=== PATIENT | male | born 1950 | race Caucasian/White ===

== ENCOUNTER → 2021-07-01 13:00 | Outpatient (BNVA) | payer MEDICARE, SELFPAY | PROVIDERS: PCP Nurse Practitioner Family; Visit Provider Nurse Practitioner Family | DX: G20 Parkinson's disease (principal); Z79.899 Other long term (current) drug therapy | CPT/HCPCS: 99212 ==

== ENCOUNTER → 2021-10-11 09:33 | Outpatient (BNVA) | payer MEDICARE, SELFPAY | PROVIDERS: PCP Nurse Practitioner Family; Visit Provider Psychiatry & Neurology Neurology | DX: G20 Parkinson's disease (principal); Z79.899 Other long term (current) drug therapy | CPT/HCPCS: 99212 ==

== ENCOUNTER 2022-02-15 08:30 | Inpatient (IN) | payer MEDICARE, SELFPAY ==
--- NOTE | ~2022-02-15 | XR_ITS ---
EXAMINATION: LEFT KNEE, LEFT HAND, LEFT FOREARM AND CHEST. CLINICAL INFORMATION: Fall. Pain COMPARISON: None TECHNIQUE: Left knee 4 views. Left hand 3 views. Left forearm 2 views. Chest one view. FINDINGS: Left knee: There is mild reduction in lateral compartment joint space without bony erosive changes. The patellofemoral joint spaces normal. There is superior patellar spurring and mild suprapatellar joint effusion. Left hand: There are oblique fractures involving mid segment fourth and fifth metacarpals with mild overriding of fracture fragment fifth metacarpal fracture. There is a nondisplaced fracture involving distal ulna. Left forearm: There is a nondisplaced oblique fracture distal ulna. The radius is intact. The radioulnar carpal joint space is normal. CHEST: The lungs are fairly well-expanded and clear of acute pneumonic process. The heart size and pulmonary vascularity is normal. Multiple views of the ribs reveal no visible fracture or bony abnormality. XR/XR hand LT 2V IMPRESSION: 1. Oblique fractures involving mid segment fourth and fifth metacarpals with mild overriding of fourth metacarpal fracture fragments. There is a nondisplaced fracture distal ulna. The radius is intact. 2. Mild degenerative changes lateral compartment left knee with mild suprapatellar joint effusion. 3. Unremarkable chest exam. No visible rib fractures seen.
--- NOTE | ~2022-02-15 | US_ITS ---
EXAMINATION: US RETROPERITONEAL LIMITED (RENAL ONLY) CLINICAL INFORMATION: Acute. Kidney insufficiency. Rule out obstruction. COMPARISON: Previous CT of the abdomen and pelvis from 2014 TECHNIQUE: Grayscale imaging of the kidneys. Exam is very limited. FINDINGS: RIGHT KIDNEY: 10 x 4.3 x 6 cm (SAG x AP x TRV). The kidney is normal in size, contour, and echogenicity. Renal cortical thickness is normal. No hydronephrosis. LEFT KIDNEY: Not visualized US/US renal BI IMPRESSION: Limited exam. The right kidney is unremarkable. The left kidney is not seen.
--- NOTE | ~2022-02-15 | XR_ITS ---
EXAMINATION: LEFT KNEE, LEFT HAND, LEFT FOREARM AND CHEST. CLINICAL INFORMATION: Fall. Pain COMPARISON: None TECHNIQUE: Left knee 4 views. Left hand 3 views. Left forearm 2 views. Chest one view. FINDINGS: Left knee: There is mild reduction in lateral compartment joint space without bony erosive changes. The patellofemoral joint spaces normal. There is superior patellar spurring and mild suprapatellar joint effusion. Left hand: There are oblique fractures involving mid segment fourth and fifth metacarpals with mild overriding of fracture fragment fifth metacarpal fracture. There is a nondisplaced fracture involving distal ulna. Left forearm: There is a nondisplaced oblique fracture distal ulna. The radius is intact. The radioulnar carpal joint space is normal. CHEST: The lungs are fairly well-expanded and clear of acute pneumonic process. The heart size and pulmonary vascularity is normal. Multiple views of the ribs reveal no visible fracture or bony abnormality. XR/XR knee LT 4V IMPRESSION: 1. Oblique fractures involving mid segment fourth and fifth metacarpals with mild overriding of fourth metacarpal fracture fragments. There is a nondisplaced fracture distal ulna. The radius is intact. 2. Mild degenerative changes lateral compartment left knee with mild suprapatellar joint effusion. 3. Unremarkable chest exam. No visible rib fractures seen.
--- NOTE | ~2022-02-15 | CT_ITS ---
EXAMINATION: CT BRAIN AND CT CERVICAL SPINE WITHOUT IV CONTRAST. CLINICAL INFORMATION: Fall, AMS. COMPARISON: None TECHNIQUE: 5 mm thin axial and reformatted 2 mm thin sagittal and coronal images of brain were obtained. Subsequently axial 3 mm thin and reformatted 2 mm thin sagittal and coronal images of cervical spine were obtained. DLP 1072. FINDINGS: Brain: There is no acute intra-axial, extra-axial bleed, masses or midline shift. There is no acute infarction evolution. The britt to white matter difference is maintained normal. Both lateral ventricles are symmetrical in size and configuration without enlargement. Bone windows reveal no calvarial abnormality. Bilateral paranasal sinuses and mastoid air cells are well-aerated. There is no scalp soft tissue abnormality. Cervical spine: There is normal cervical lordosis. The vertebral heights and alignment is normal. There is loss of C5-C6 and C6-C7 disc heights with mild ventral and posterior spondylosis. The craniovertebral junction and the C1-C2 alignment is normal. There is no visible acute fracture, dislocation or subluxation seen. There is bilateral C3-C4, C4-C5 and C5-C6 moderate to significant facet joint arthropathy greater on the right side with bilateral narrowing of neural foramina at these disc levels. No visible acute fracture, dislocation or subluxation seen. The lung apices are clear. The prevertebral soft tissues are normal. The airways widely patent. CT/CT cervical spine wo IV con IMPRESSION: 1. No acute intracranial process seen. 2. There is no acute fracture, dislocation or subluxation in cervical spine. There are degenerative disc changes C5-C6 and C6-C7 disc levels with ventral and posterior spondylosis.
--- NOTE | ~2022-02-15 | CT_ITS ---
EXAMINATION: CT BRAIN AND CT CERVICAL SPINE WITHOUT IV CONTRAST. CLINICAL INFORMATION: Fall, AMS. COMPARISON: None TECHNIQUE: 5 mm thin axial and reformatted 2 mm thin sagittal and coronal images of brain were obtained. Subsequently axial 3 mm thin and reformatted 2 mm thin sagittal and coronal images of cervical spine were obtained. DLP 1072. FINDINGS: Brain: There is no acute intra-axial, extra-axial bleed, masses or midline shift. There is no acute infarction evolution. The britt to white matter difference is maintained normal. Both lateral ventricles are symmetrical in size and configuration without enlargement. Bone windows reveal no calvarial abnormality. Bilateral paranasal sinuses and mastoid air cells are well-aerated. There is no scalp soft tissue abnormality. Cervical spine: There is normal cervical lordosis. The vertebral heights and alignment is normal. There is loss of C5-C6 and C6-C7 disc heights with mild ventral and posterior spondylosis. The craniovertebral junction and the C1-C2 alignment is normal. There is no visible acute fracture, dislocation or subluxation seen. There is bilateral C3-C4, C4-C5 and C5-C6 moderate to significant facet joint arthropathy greater on the right side with bilateral narrowing of neural foramina at these disc levels. No visible acute fracture, dislocation or subluxation seen. The lung apices are clear. The prevertebral soft tissues are normal. The airways widely patent. CT/CT head/brain wo IV con IMPRESSION: 1. No acute intracranial process seen. 2. There is no acute fracture, dislocation or subluxation in cervical spine. There are degenerative disc changes C5-C6 and C6-C7 disc levels with ventral and posterior spondylosis.
--- NOTE | ~2022-02-15 | XR_ITS ---
EXAMINATION: XR LUMBOSACRAL SPINE CLINICAL INFORMATION: Fall. COMPARISON: None TECHNIQUE: Three views of the lumbosacral spine. FINDINGS: There is maintained lumbar lordosis. The vertebral heights and alignment is normal. There is loss of disc height virtually at every disc level with ventral spondylosis at L4-L5 and L5-S1 disc levels. There are bilateral L2, L3, L4 pedicular screws and interconnecting rods with L3-L4 disc prosthesis. No lytic or sclerotic process seen. Large amount of gas is seen in the small bowel loops. XR/XR lumbar spine 2-3V IMPRESSION: Degenerative disc changes virtually at every disc levels with moderate ventral spondylosis L4-L5 and L5-S1 disc levels. There is posterior hardware fusion from L2 through L4 vertebra and a disc prosthesis at the L3-L4 disc level.
--- NOTE | ~2022-02-15 | XR_ITS ---
EXAMINATION: LEFT KNEE, LEFT HAND, LEFT FOREARM AND CHEST. CLINICAL INFORMATION: Fall. Pain COMPARISON: None TECHNIQUE: Left knee 4 views. Left hand 3 views. Left forearm 2 views. Chest one view. FINDINGS: Left knee: There is mild reduction in lateral compartment joint space without bony erosive changes. The patellofemoral joint spaces normal. There is superior patellar spurring and mild suprapatellar joint effusion. Left hand: There are oblique fractures involving mid segment fourth and fifth metacarpals with mild overriding of fracture fragment fifth metacarpal fracture. There is a nondisplaced fracture involving distal ulna. Left forearm: There is a nondisplaced oblique fracture distal ulna. The radius is intact. The radioulnar carpal joint space is normal. CHEST: The lungs are fairly well-expanded and clear of acute pneumonic process. The heart size and pulmonary vascularity is normal. Multiple views of the ribs reveal no visible fracture or bony abnormality. XR/XR chest 1V IMPRESSION: 1. Oblique fractures involving mid segment fourth and fifth metacarpals with mild overriding of fourth metacarpal fracture fragments. There is a nondisplaced fracture distal ulna. The radius is intact. 2. Mild degenerative changes lateral compartment left knee with mild suprapatellar joint effusion. 3. Unremarkable chest exam. No visible rib fractures seen.
--- NOTE | ~2022-02-15 | XR_ITS ---
EXAMINATION: LEFT KNEE, LEFT HAND, LEFT FOREARM AND CHEST. CLINICAL INFORMATION: Fall. Pain COMPARISON: None TECHNIQUE: Left knee 4 views. Left hand 3 views. Left forearm 2 views. Chest one view. FINDINGS: Left knee: There is mild reduction in lateral compartment joint space without bony erosive changes. The patellofemoral joint spaces normal. There is superior patellar spurring and mild suprapatellar joint effusion. Left hand: There are oblique fractures involving mid segment fourth and fifth metacarpals with mild overriding of fracture fragment fifth metacarpal fracture. There is a nondisplaced fracture involving distal ulna. Left forearm: There is a nondisplaced oblique fracture distal ulna. The radius is intact. The radioulnar carpal joint space is normal. CHEST: The lungs are fairly well-expanded and clear of acute pneumonic process. The heart size and pulmonary vascularity is normal. Multiple views of the ribs reveal no visible fracture or bony abnormality. XR/XR forearm LT 2V IMPRESSION: 1. Oblique fractures involving mid segment fourth and fifth metacarpals with mild overriding of fourth metacarpal fracture fragments. There is a nondisplaced fracture distal ulna. The radius is intact. 2. Mild degenerative changes lateral compartment left knee with mild suprapatellar joint effusion. 3. Unremarkable chest exam. No visible rib fractures seen.
--- NOTE | ~2022-02-15 | XR_ITS ---
EXAMINATION: XR HAND, RIGHT CLINICAL INFORMATION: Pain COMPARISON: None TECHNIQUE: PA and lateral views of the right hand. FINDINGS: Lateral view is limited due to patient rotation/positioning. Question ossification in between the lunate bone distal radius and distal ulna versus mock effect/bony overlap measuring 3 mm seen on the PA view. Joint spaces are otherwise normal. Soft tissues are normal. XR/XR hand RT 2V IMPRESSION: Lateral view limited due to patient positioning/rotation. Question ossification in between the lunate, distal radius and distal ulna. Additional imaging recommended.
[2022-02-15 08:36] VITALS: BP 154/67; BP 173/97; PULSE 73; PULSE 84; RESP 18; TEMP 36.8; O2SAT 100; BMI 25.0
--- NOTE | 2022-02-15 08:55 | PC.NURSE ---
PT was found in backyard by [employer], unwitnessed fall. PT reports falling 3 steps down from porch. Approximately for 30 mins prior. A&O to self and place. PT reports pain to lower back, left knee, and left arm pain. PT has yellow color bruise to left anterior upper arm, tender to touch left red knee, and red area to right hip. Fingers are discolored. PT doc by EMS.
[2022-02-15 08:57] VITALS: BP 154/67; PULSE 70; RESP 15; TEMP 36.8; O2SAT 94
[2022-02-15 09:01] LABS: Glucose, Whole Blood 97 mg/dL (60-115)
--- NOTE | 2022-02-15 09:07 | ED_ITS ---
HPI - General Adult General Chief complaint: Fall Stated complaint: AMS,FOUND OUTSIDE BY [employer],W/C BOUND Time Seen by Provider: 02/15/22 09:05 Source: patient and EMS Mode of arrival: EMS Limitations: altered mental status History of Present Illness HPI narrative: Patient is a 71 year old assigned male at with a history of parkinson's presenting to the emergency department today after a fall. Patient states that he fell yesterday, down 3 steps, and now his left arm hurts. EMS states that they found the patient down in his backyard and the patient kept referring to his being murdered but his has been for years. Patient denies any dizziness, lightheadedness, abdominal pain, nausea, vomiting, fever, chills, blurry vision, double vision, loss of vision, chest pain, difficulty breathing, shortness of breath, back pain, night sweats, pain with urination, increased urinary frequency, increased urinary urgency, blood in his urine or stool, syncope or a near syncopal episode, bowel incontinence, bladder incontinence, bowel retention, bladder retention, or any other complaints at this time. Onset (ago): unknown Location: left and upper extremity Radiation: non-radiation Severity: mild Severity scale (1-10): 4 Quality: aching and dull Pain Consistency: constant Relieving factors: none Exacerbating factors: movement Associated symptoms: denies other symptoms Treatments prior to arrival: none Related Data Home Medications Medication Instructions Recorded Confirmed alendronate 70 mg/75 mL oral 70 mg PO QWEEK 07/01/21 02/15/22 solution amantadine HCl 100 mg capsule 1 cap PO BID 02/15/22 02/15/22 carbidopa 25 mg-levodopa 100 mg 1 tab PO 5XD 02/15/22 02/15/22 tablet carbidopa ER 25 mg-levodopa 100 mg 1 tab PO QAM 02/15/22 02/15/22 tablet,extended release cyclobenzaprine 5 mg tablet 1 tab PO BEDTIME PRN Spasms 02/15/22 02/15/22 entacapone 200 mg tablet 1 tab PO 5XD 02/15/22 02/15/22 oxycodone 10 mg tablet 2 tab PO Q8H PRN pain 02/15/22 02/15/22 simvastatin 20 mg tablet 1 tab PO BEDTIME 02/15/22 02/15/22 sulfamethoxazole 800 1 tab PO BID 02/15/22 02/15/22 mg-trimethoprim 160 mg tablet Allergies Allergy/AdvReac Type Severity Reaction Status Date / Time No Known Allergies Allergy Unverified 07/01/21 13:06 Review of Systems Constitutional: Constitutional: Reports no additional constitutional complaints, Denies chills, Denies fever(s) and Denies night sweats Eyes: Eyes: Reports no additional eye complaints, Denies blurry vision, Denies change in vision, Denies diplopia, Denies eye discharge, Denies loss of vision and Denies eye pain ENT: Denies dizziness Cardiovascular: Cardiovascular: Reports no additional cardiovascular complaints, Denies chest pain, Denies lightheadedness, Denies Loss of Consciousness and Denies dyspnea Respiratory: Respiratory: Reports no additional respiratory complaints and Denies dyspnea Gastrointestinal: Gastrointestinal: Reports no additional gastrointestinal complaints, Denies abdominal pain, Denies melena, Denies hematochezia, Denies change in bowel habits and Denies change in stool character Genitourinary: Genitourinary: Reports no additional male genitourinary complaints, Denies hematuria, Denies oliguria, Denies difficulty urinating, Denies dysuria, Denies urinary frequency, Denies urinary hesitancy, Denies urin sherrell incontinence and Denies urinary urgency Musculoskeletal: Musculoskeletal: Reports no additional musculoskeletal complaints, Denies numbness and Denies tingling Comments: left arm pain Neurologic: Reports confusion (intermittently), Denies dizziness, Denies loss of vision, Denies numbness and Denies tingling Psychiatric: Psychiatric: Reports no additional psychiatric complaints and Reports confusion (intermittently) Endocrine: Endocrine: Reports no additional endocrine complaints Hematologic/Lymphatic: Hematologic/Lymphatic: Reports no additional hematologic/lymphatic complaints Allergic/Immunologic: Allergic/Immunologic: Reports no additional allergic/immunologic complaints [facility] Past Medical History Attestation statement: The following information was validated with the patient. Source: old records reviewed Medical History (Updated 02/15/22 @ 16:44 by NATASHA Palencia) Adrenal adenoma Atherosclerosis Osteoporosis Parkinson disease Spinal stenosis Surgical History (Updated 02/15/22 @ 15:38 by Sarah Clark MD) History of back surgery History of lumbar fusion Family History Family History (Updated 02/15/22 @ 15:38 by Sarah Clark MD) Father CVA (cerebral vascular accident) Social History Social History Household Members: None Alcohol intake: never Patient Tobacco Use Status: Former Tobacco user Advance Directives: Yes Advance Directives Information Provided: Yes Advance Directives on File: No Physical Exam ED Vital Signs: Vital Signs - 24 hr 02/15/22 08:36 02/15/22 08:57 Temperature 98.2 F 98.2 F Pulse Rate 73 70 Respiratory Rate 18 15 Blood Pressure 154/67 H 154/67 H Pulse Oximetry 100 94 Oxygen Delivery Method Room Air Room Air BMI result Body Mass Index 25.0 Const General: confusion (intermittently) Nutritional Appearance: well nourished Orientation/consciousness: oriented to person, oriented to place and confusion (intermittently) Limitations: no limitations HENMT Head: Yes normal to inspection and Yes atraumatic Ears: hearing grossly normal bilaterally and external ears normal General nose exam: Normal external nose present, no nasal discharge noted and no epistaxis Face and sinus: Yes normal facial exam, No abrasion and No laceration Mouth: Normal oral and palatal mucosa present, no drooling and no muffled voice Eyes General: appearance normal, both eyes and all related structures Periorbital: periorbital findings normal Eyelids: Yes eyelids normal Conjunctivae: conjunctivae normal Pupils: Equal, round and reactive pupils present EOM: EOMs intact bilaterally Neck Neck: Yes normal visual inspection, Yes full ROM and Yes no lymphadenopathy Chest Chest palpation & inspection: normal inspection of the chest Resp Effort & Inspection: normal respiratory effort and able to speak in complete sentences Auscultation: clear to auscultation bilaterally Cardio Rate: regular rate Rhythm: regular rhythm GI Inspection: Yes normal to inspection Skin Other: mild bruising to the right dorsal metacarpals, mild bruising to the left dorsal forearm and left dorsal 4th and 5th metacarpals Neuro General: oriented to person, oriented to place and confusion (intermittently) Cranial nerves: Yes Equal, round and reactive pupils present Motor exam (neuro): 5/5 motor strength present throughout Sensory Exam: Normal double simultaneous stimulation for sensation Coordination: [id number] test normal Extrem General: Yes normal to inspection, Yes full ROM and Yes capillary refill normal Psych Appearance: grossly normal Mental Status: mental status grossly normal Affect: normal affect Attitude: cooperative Thought process: Normal thought process present Thought content: Normal thought content present Insight: Good insight present (Psych) Medications Administered Discontinued Medications Generic Name Dose Route Start Last Admin Trade Name Temitope PRN Reason Stop Dose Admin Sodium Chloride 1,000 mls @ 999 mls/hr 02/15/22 10:30 02/15/22 11:56 Ns IV 02/15/22 11:30 Infused .Q1H1M CHELO Infusion Sodium Polystyrene Sulfonate 30 gm 02/15/22 10:18 02/15/22 11:36 Sodium Polystyrene Sulfon/Sorb 15 Gm/60 Ml Oral.Susp PO 02/15/22 10:19 30 gm ONCE ONE Administration Procedures Orthopedic Splinting/Casting Injury #1: Side: left Upper Extremity Injury Location: forearm Upper Extremity Immobilizer: volar splint Medical Decision Making MDM Narrative Medical decision making narrative: Patient is a 71 year old assigned male at with a history of parkinsons presenting to the emergency department today with left forearm pain and confusion. Patient's physical exam showed a pleasantly confused individual with sporradic moments of flash backs to the traumatic event of his being killed, with mild bruising to the left dorsal forearm, mild bruising to the left dorsal 4th and 5th metacarpals, and mild bruising to the right dorsal metacarpals. Patient's blood work showed an of NA 134, K of 5.4, CO of 18, BUN of 54, CR of 3.11, and total CK of 2240. Patient's urine is pending. Patient's chest, left knee, right hand, and lumbar spine x-rays showed no acute process. Patient's right hand x-ray showed an acute distal ulnar fracture. Patient's left hand x-ray showed oblique fractures involving mid segment fourth and fifth metacarpals with mild overriding of fourth metacarpal fracture fragments. I explained my physical exam findings as well as all test results to the patient. I answered all questions asked by the patient. Patient's left hand was placed in an extended ulnar gutter splint, without incident. I spoke to the hospitalist team who agreed to admission. Patient verbalized agreement and understanding with this treatment plan and admission. Medical Records Medical records reviewed: Yes I reviewed the patient's medical records. Lab Data Lab results reviewed: Yes I reviewed the patient's lab results. Result diagrams: 02/15/22 09:35 02/15/22 09:35 Labs: Lab Results 02/15/22 02/15/22 02/15/22 Range/Units 08:56 09:35 09:35 WBC 7.1 (4.8-10.8) X10*3/uL RBC 3.78 L (4.60-5.80) X10*6/uL Hgb 12.2 L (14.0-18.0) g/dl Hct 36.0 L (42.0-52.0) % MCV 95.2 (80.0-98.0) fL MCH 32.3 (27.0-33.0) pg MCHC 33.9 (31.0-36.0) g/dl RDW 13.1 (11.0-16.0) % Plt Count 153 L (160-400) X10*3/uL MPV 9.1 L (9.4-12.4) fL Immature Gran % (Auto) 0.4 (0.0-0.4) % Neut % (Auto) 80.6 H (45-73) % Lymph % (Auto) 8.2 L (20-40) % [place] % (Auto) 10.5 (2-11) % Eos % (Auto) 0.0 (0-4) % Baso % (Auto) 0.3 (0-2) % Lymph # (Auto) 0.6 L (1.2-4.9) X10*3/uL [place] # (Auto) 0.7 (0.1-1.2) X10*3/uL Eos # (Auto) 0.0 (0.0-0.4) X10*3/uL Baso # (Auto) 0.0 (0.0-0.2) X10*3/uL Abs Immat Gran (auto) 0.03 (0.00-0.03) X10*3/uL Absolute Neuts (auto) 5.7 (2.0-8.3) x10*3/uL Absolute Nucleated RBC 0.000 (0.0-0.012) X10*3/uL Nucleated RBC % (auto) 0.0 (0.0-0.2) /100WBC PT (10.0-13.1) SEC INR (0.9-1.1) APTT (26.0-36.4) SEC Sodium 134 L (135-145) mmol/L Potassium 5.4 H (3.3-5.1) mmol/L Chloride 102 (96-108) mmol/L Carbon Dioxide 18 L (22-29) mmol/L Anion Gap 19 (12-20) BUN 54 H (9-16) mg/dL Creatinine 3.11 H (0.5-1.4) mg/dL Estim Creat Clear Calc 24.6 Estimated GFR 20 POC Glucose 97 (60-115) mg/dL Random Glucose 91 (60-115) mg/dL Calcium 9.5 (8.4-10.2) mg/dL Total Bilirubin 0.7 (0.0-1.0) mg/dL AST 92 H (5-37) U/L ALT 8 (0-40) U/L Alkaline Phosphatase 100 (39-117) U/L Total Creatine Kinase (38-174) U/L Total Protein 7.1 (6.5-8.0) g/dL Albumin 4.4 (3.5-5.0) g/dL Influenza Type A (PCR) (Negative) Influenza Type B (PCR) (Negative) RSV RNA Qual (PCR) (Negative) SARS-CoV-2 RNA (RT-PCR) (Negative) 02/15/22 02/15/22 02/15/22 Range/Units 11:34 11:34 12:40 WBC (4.8-10.8) X10*3/uL RBC (4.60-5.80) X10*6/uL Hgb (14.0-18.0) g/dl Hct (42.0-52.0) % MCV (80.0-98.0) fL MCH (27.0-33.0) pg MCHC (31.0-36.0) g/dl RDW (11.0-16.0) % Plt Count (160-400) X10*3/uL MPV (9.4-12.4) fL Immature Gran % (Auto) (0.0-0.4) % Neut % (Auto) (45-73) % Lymph % (Auto) (20-40) % Oxford % (Auto) (2-11) % Eos % (Auto) (0-4) % Baso % (Auto) (0-2) % Lymph # (Auto) (1.2-4.9) X10*3/uL [place] # (Auto) (0.1-1.2) X10*3/uL Eos # (Auto) (0.0-0.4) X10*3/uL Baso # (Auto) (0.0-0.2) X10*3/uL Abs Immat Gran (auto) (0.00-0.03) X10*3/uL Absolute Neuts (auto) (2.0-8.3) x10*3/uL Absolute Nucleated RBC (0.0-0.012) X10*3/uL Nucleated RBC % (auto) (0.0-0.2) /100WBC PT 11.5 (10.0-13.1) SEC INR 1.0 (0.9-1.1) APTT 27.8 (26.0-36.4) SEC Sodium (135-145) mmol/L Potassium (3.3-5.1) mmol/L Chloride (96-108) mmol/L Carbon Dioxide (22-29) mmol/L Anion Gap (12-20) BUN (9-16) mg/dL Creatinine (0.5-1.4) mg/dL Estim Creat Clear Calc Estimated GFR POC Glucose (60-115) mg/dL Random Glucose (60-115) mg/dL Calcium (8.4-10.2) mg/dL Total Bilirubin (0.0-1.0) mg/dL AST (5-37) U/L ALT (0-40) U/L Alkaline Phosphatase (39-117) U/L Total Creatine Kinase 2240 H (38-174) U/L Total Protein (6.5-8.0) g/dL Albumin (3.5-5.0) g/dL Influenza Type A (PCR) NEGATIVE (Negative) Influenza Type B (PCR) NEGATIVE (Negative) RSV RNA Qual (PCR) NEGATIVE (Negative) SARS-CoV-2 RNA (RT-PCR) NEGATIVE (Negative) Imaging Data Right hand x-ray: Attestation: I personally reviewed and interpreted this imaging study as follows: My impression: No acute process. Radiologist's impression: EXAMINATION: XR HAND, RIGHT CLINICAL INFORMATION: Pain? COMPARISON: None? TECHNIQUE: PA and lateral views of the right hand. FINDINGS: Lateral view is limited due to patient rotation/positioning.? Question ossification in between the lunate bone distal radius and distal ulna versus mock effect/bony overlap measuring 3 mm seen on the PA view. Joint spaces are otherwise normal. Soft tissues are normal. XR/XR hand RT 2V IMPRESSION: Lateral view limited due to patient positioning/rotation. Question ossification in between the lunate, distal radius and distal ulna. Additional imaging recommended. Dictated By: Cecile Ashraf MD Signed By: Electronically signed by Cecile Ashraf MD 02/15/22 1402 Left knee, left hand, left forearm, and chest x-ray: Attestation: I personally reviewed and interpreted this imaging study as follows: My impression: Left 4th and 5th metacarpal fractures, distal ulnar fracture. Radiologist's impression: EXAMINATION: LEFT KNEE, LEFT HAND, LEFT FOREARM AND CHEST. CLINICAL INFORMATION: Fall. Pain? COMPARISON: None? TECHNIQUE: Left knee 4 views. Left hand 3 views. Left forearm 2 views. Chest one view.? FINDINGS: Left knee: There is mild reduction in lateral compartment joint space without bony erosive changes. The patellofemoral joint spaces normal. There is superior patellar spurring and mild suprapatellar joint effusion. Left hand: There are oblique fractures involving mid segment fourth and fifth metacarpals with mild overriding of fracture fragment fifth metacarpal fracture. There is a nondisplaced fracture involving distal ulna. Left forearm: There is a nondisplaced oblique fracture distal ulna. The radius is intact. The radioulnar carpal joint space is normal. CHEST: The lungs are fairly well-expanded and clear of acute pneumonic process. The heart size and pulmonary vascularity is normal. Multiple views of the ribs reveal no visible fracture or bony abnormality. XR/XR knee LT 4V IMPRESSION: 1.? Oblique fractures involving mid segment fourth and fifth metacarpals with mild overriding of fourth metacarpal fracture fragments. There is a nondisplaced fracture distal ulna. The radius is intact. 2.? Mild degenerative changes lateral compartment left knee with mild suprapatellar joint effusion. 3.? Unremarkable chest exam. No visible rib fractures seen. Dictated By: Carlos Rios MD Signed By: Electronically signed by Carlos Rios MD 02/15/22 8246 ECG Data Attestation: I personally reviewed and interpreted this ECG as follows: Prior ECG tracings: available for review Critical Care Time Critical Care Time Critical Care Time: Yes Total Critical Care Time: 30 Attestation: I spent 30 minutes of Critical Care Time with this patient. This does not include time spent on separately reported billable procedures. Discharge Plan Discharge Clinical Impression: Metacarpal bone fracture, Ulnar fracture, Rhabdomyolysis, Acute kidney failure Patient Disposition: Admitted As Inpatient
[2022-02-15 09:40] LABS: MANUAL DIFF FLAG NO
[2022-02-15 09:42] LABS: Basophils Percent Auto 0.3 % (0-2); Hemoglobin 12.2 g/dl (14.0-18.0); Imm Gran Abs Auto 0.03 X10*3/uL (0.00-0.03); Imm Gran Pct Auto 0.4 % (0.0-0.4); Lymphocytes Absolute Auto 0.6 X10*3/uL (1.2-4.9); Lymphocytes Percent Auto 8.2 % (20-40); Mean Corpuscular HGB Conc 33.9 g/dl (31.0-36.0); Mean Corpuscular Hemoglobin 32.3 pg (27.0-33.0); Mean Corpuscular Volume 95.2 fL (80.0-98.0); Mean Platelet Volume 9.1 fL (9.4-12.4); Monocytes Absolute Auto 0.7 X10*3/uL (0.1-1.2); Monocytes Percent Auto 10.5 % (2-11); Neutrophils Absolute Auto 5.7 x10*3/uL (2.0-8.3); Neutrophils Percent Auto 80.6 % (45-73); Platelet Count 153 X10*3/uL (160-400); Red Blood Count 3.78 X10*6/uL (4.60-5.80); Red Cell Distribution Width 13.1 % (11.0-16.0); White Blood Count 7.1 X10*3/uL (4.8-10.8)
[2022-02-15 10:02] LABS: Alanine Aminotransferase 8 U/L (0-40); Albumin Level 4.4 g/dL (3.5-5.0); Alkaline Phosphatase 100 U/L (39-117); Anion Gap 19 (12-20); Aspartate Amino Transferase 92 U/L (5-37); Bilirubin Total 0.7 mg/dL (0.0-1.0); Blood Urea Nitrogen 54 mg/dL (9-16); Calcium 9.5 mg/dL (8.4-10.2); Carbon Dioxide 18 mmol/L (22-29); Chloride 102 mmol/L (96-108); Creatinine Clr Calc Pharmacy 24.6; Estimated Glomerular Filt Rate 20; Glucose Random 91 mg/dL (60-115); Potassium 5.4 mmol/L (3.3-5.1); Sodium 134 mmol/L (135-145); Total Protein 7.1 g/dL (6.5-8.0)
[2022-02-15] MEDS: 0.9 % Sodium Chloride 1,000 ML 999 ML IV (10:51)
[2022-02-15] MEDS: Sodium Polystyrene Sulfon/Sorb 15 GM/60 ML ORAL.SUSP 30 GM PO (11:36)
[2022-02-15 11:54] LABS: Prothrombin Time 11.5 SEC (10.0-13.1)
[2022-02-15 11:57] LABS: Partial Thromboplastin Time 27.8 SEC (26.0-36.4)
[2022-02-15 13:33] LABS: Influenza A PCR NEGATIVE (Negative); Influenza B PCR NEGATIVE (Negative); Resp Syncy Virus RNA Qual PCR NEGATIVE (Negative); SARS COV2 PCR INHOUSE NEGATIVE (Negative)
--- NOTE | 2022-02-15 14:20 | PHA.MEDREC ---
Pharmacy Consult ? Medication Reconciliation Pharmacy has completed the medication reconciliation. Patient has AMS, used pharmacy claims.
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
[2022-02-15 17:33] LABS: Appearance Urine Clear; Color Urine Yellow; Glucose Urine UA Negative (Negative); Leukocyte Esterase Urine Negative (Negative); Nitrite Urine Negative (Negative); PH 5.5 (5.0-9.0); Specific Gravity - Urine >= 1.030 (1.005-1.025); UMIC TRIGGER UA YES; Urine Blood Trace (Negative); Urine Ketones 15 mg/dL (Negative); Urine Protein Negative (Neg-Trace)
[2022-02-15 17:43] LABS: Amphetamine Screen Urine Not Detected (Not Detect); Barbiturates, Urine Not Detected (Not Detect); Benzodiazepines Screen Urine Not Detected (Not Detect); Cannabinoid Screen Urine Not Detected (Not Detect); Cocaine Screen Urine Not Detected (Not Detect); Fentanyl, urine Not Detected (Not Detect); Opiate Screen Urine POSITIVE (Not Detect); Phencyclidine Screen Urine Not Detected (Not Detect)
[2022-02-15 17:45] LABS: WBC Urine 0-5 /HPF (0-5)
[2022-02-15 17:46] LABS: Bacteria Urine None Seen (None Seen); Hyaline Casts Urine 0-2 /LPF (0-2)
[2022-02-15 17:52] LABS: Glucose, Whole Blood 91 mg/dL (60-115)
[2022-02-15] MEDS: 0.9 % Sodium Chloride 1,000 ML 100 ML IVCONT (17:55)
--- NOTE | 2022-02-15 18:13 | P.EN_ITS ---
Event Note Date of Service: 02/15/22 Event Note: COMMUNITY CHEST OFFICER called for AMS, seizure activity. vitals stable, did not appear to be epileptic in nature, though patient visibily agitated and confused, concern for withdrawal, will start phenobarb.
[2022-02-15 19:14] LABS: Lactic Acid 3.1 mmol/L (0.5-2.0)
[2022-02-15] MEDS: Heparin Sodium,Porcine 5,000 UNIT/ML VIAL 5000 UNIT SUBCUT (19:21)
[2022-02-15] MEDS: PHENobarbitaL sodium 130 MG/ML IM ONCE 248 MG IM (19:22)
[2022-02-15] MEDS: Thiamine HCL 100 MG in 0.9 % Sodium Chloride 100 ML 202 MG IV (19:25)
[2022-02-15 20:31] LABS: Creatinine Urine 136.37 mg/dL
[2022-02-15 20:41] LABS: Reflex Lactate? Lactic Acid Added
--- NOTE | 2022-02-15 21:16 | PC.NURSE ---
pt from overflow to 487 at 21:00 on soft restrains to right wrist, left ankle and right ankle. order for soft restrains by Dr Clark at 17:36
[2022-02-15 21:39] LABS: Ethanol < 10 mg/dL; Sodium 137 mmol/L (135-145)
[2022-02-15 21:44] VITALS: BP 130/85; PULSE 85; RESP 18; TEMP 37.7; O2SAT 97
[2022-02-15 22:08] LABS: ~Lactic Acid-LAB USE ONLY 0.8 mmol/L (0.5-2.0)
[2022-02-15] MEDS: PHENobarbitaL sodium 130 MG/ML VIAL IM Q3Hx2 186 MG IM (22:37)
[2022-02-15] MEDS: Carbidopa/Levodopa 25/100 TABLET 1 TAB PO (22:39)
[2022-02-15] MEDS: amantadine HCL 100 MG CAPSULE PO (22:39)
[2022-02-15] MEDS: Atorvastatin Calcium 10 MG TABLET PO (22:39)
[2022-02-15] MEDS: oxyCODONE HCl Immed Release 5 MG TABLET 20 MG PO (22:42)
--- NOTE | 2022-02-15 23:13 | PC.NURSE ---
soft restrains dc'd at 22:30 , pt's observer at the bedside
[2022-02-15] MEDS: 0.9 % Sodium Chloride Flush 3 ML SYRINGE IVFLUSH (23:48)
[2022-02-15 23:52] VITALS: BP 130/61; PULSE 73; RESP 17; TEMP 36.5; O2SAT 94
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
[2022-02-16] MEDS: PHENobarbitaL sodium 130 MG/ML VIAL IM Q3Hx2 186 MG IM (02:48)
[2022-02-16] MEDS: 0.9 % Sodium Chloride 1,000 ML 100 ML IVCONT ×2 (03:05→13:20)
[2022-02-16] MEDS: Heparin Sodium,Porcine 5,000 UNIT/ML VIAL 5000 UNIT SUBCUT (03:05)
[2022-02-16 03:16] VITALS: BP 162/77; PULSE 72; RESP 16; TEMP 36.7; O2SAT 98
[2022-02-16] MEDS: oxyCODONE HCl Immed Release 5 MG TABLET 20 MG PO (06:07)
[2022-02-16] MEDS: Carbidopa/Levodopa 25/100 TABLET 1 TAB PO ×2 (06:08→15:30)
[2022-02-16 07:38] VITALS: BP 141/70; PULSE 69; RESP 20; TEMP 36.7; O2SAT 94
--- NOTE | 2022-02-16 07:54 | PM.EVENT ---
Event Note Date of Service: 02/16/22 Event Note: 71yo M with Parkinson's Disease who lives alone and fell in his backyard .? He is wheelchair-bound and apparently lost his balance and fell on his left arm. While attempting to meet with the patient this morning he continued to appear confused and not cooperating. He does have a splint to the left arm which is clean, dry and intact. Xrays show a left distal ulnar and left 5th metacarpal shaft fracture. This may require surgical intervention. I will discuss with hand surgeon, Dr Rich to determine r/b/a if it is indicated.
--- NOTE | 2022-02-16 09:07 | P.CDIC_ITS ---
CDI Concurrent Query Documentation Clarification: PHYSICIAN'S DOCUMENTATION REQUEST Date of Query: 02/16/22 0911 Patient Name: Tony Dang Admit Date: 02/15/22 Dear Doctor, A review of the medical record indicates additional documentation may be needed. Please review below and update the documentation accordingly. Clinical Indicators: Risk Factors/Clinical Indicators/Treatments PN: Assessment plan - Rhabdomyolysis Patient fell, fractured metacarpal bone, ulnar fracture. Total creatine kinase 2240 H Based on the above, could you clarify in the Progress Notes the appropriate diagnosis, if significant, that supports the above abnormalities and additional evaluation, monitoring, and/or treatment rendered: * Traumatic Rhabdomyolysis * Non-traumatic Rhabdomyolysis * Other (please specify) * Unable to determine Use of terms such as suspected, likely, concern for, or probable (associated with a specific diagnosis that is being evaluated, monitored, or treated as if it exists) are acceptable and can be coded in the inpatient setting, when documented at the time of discharge. Thank you, Omaira Mendoza [facility], CDIS Extension: [phone] Please use your independent medical judgment in providing your response. THIS QUERY IS PART OF THE PERMANENT MEDICAL RECORD Provider Response: Other Other Diagnosis: traumatic
[2022-02-16 09:13] LABS: Hematocrit 33.8 % (42.0-52.0); Hemoglobin 11.2 g/dl (14.0-18.0); Mean Corpuscular HGB Conc 33.1 g/dl (31.0-36.0); Mean Corpuscular Hemoglobin 32.2 pg (27.0-33.0); Mean Corpuscular Volume 97.1 fL (80.0-98.0); Mean Platelet Volume 9.1 fL (9.4-12.4); Platelet Count 140 X10*3/uL (160-400); Red Blood Count 3.48 X10*6/uL (4.60-5.80); Red Cell Distribution Width 12.9 % (11.0-16.0); White Blood Count 4.5 X10*3/uL (4.8-10.8)
[2022-02-16 09:36] LABS: Alanine Aminotransferase 9 U/L (0-40); Albumin Level 3.4 g/dL (3.5-5.0); Alkaline Phosphatase 80 U/L (39-117); Aspartate Amino Transferase 90 U/L (5-37); Bilirubin Direct 0.3 mg/dL (0.0-0.5); Bilirubin Total 0.6 mg/dL (0.0-1.0); Blood Urea Nitrogen 29 mg/dL (9-16); Creatinine Clr Calc Pharmacy 55.8; Estimated Glomerular Filt Rate 52; Glucose Random 97 mg/dL (60-115); Total Protein 5.6 g/dL (6.5-8.0)
[2022-02-16 09:46] LABS: Anion Gap 12 (12-20); Calcium 7.7 mg/dL (8.4-10.2); Carbon Dioxide 19 mmol/L (22-29); Chloride 110 mmol/L (96-108); Potassium 3.6 mmol/L (3.3-5.1); Sodium 137 mmol/L (135-145)
[2022-02-16 10:05] LABS: Folate 8.6 ng/mL (> or = 4.0); Vitamin B12 294 pg/mL (200-900)
--- NOTE | 2022-02-16 10:59 | P.CNNE_ITS ---
History of Present Illness Data of Consult Service Date: 02/16/22 Primary Care Provider: Unknown Physician HPI Reason for consult: Encephalopathy 71 years old man who carried a diagnosis of Parkinson's called police and was brought here. Apparently he fell at home call police and stated that his was moderate and she was in the house. Apparently his had few years ago. When I saw him he was not able to provide any meaningful history. Review of Systems Review of Systems: Could not be done with [facility] Past Medical History Medical History (Updated 02/16/22 @ 11:01 by Len Santiago MD) Adrenal adenoma Atherosclerosis Osteoporosis Parkinson disease Spinal stenosis Family History Family History (Updated 02/15/22 @ 15:38 by Sarah Clark MD) Father CVA (cerebral vascular accident) Surgical History Surgical History (Updated 02/15/22 @ 15:38 by Sarah Clark MD) History of back surgery History of lumbar fusion Social History Social History Household Members: None Housing: House Unable to assess alcohol history related to: Unable to respond and Unknown Alcohol intake: never Patient Tobacco Use Status: Former Tobacco user Advance Directives Date on File: 02/15/22 Meds Allergies Allergy/AdvReac Type Severity Reaction Status Date / Time No Known Allergies Allergy Unverified 07/01/21 13:06 Active Medications: Current Medications Acetaminophen (Acetaminophen 325 Mg Tablet) 650 mg PO Q6H PRN PRN Reason: Pain, Mild (Pain Scale 1-3) Amantadine HCl (Amantadine Hcl 100 Mg Capsule) 100 mg PO BID [facility] Last Admin: 02/15/22 22:39 Dose: 100 mg Atorvastatin Calcium (Atorvastatin Calcium 10 Mg Tablet) 10 mg PO BEDTIME [facility] Last Admin: 02/15/22 22:39 Dose: 10 mg Carbidopa/Levodopa (Carbidopa/Levodopa Cr 25/100 Tablet.Er) 1 tab PO DAILY [facility] Carbidopa/Levodopa (Carbidopa/Levodopa 25/100 Tablet) 1 tab PO 5XD [facility] Last Admin: 02/16/22 06:08 Dose: 1 tab Cyclobenzaprine HCl (Cyclobenzaprine Hcl 5 Mg Tablet) 5 mg PO BEDTIME PRN PRN Reason: Spasms Entacapone (Entacapone 200 Mg Tablet) 200 mg PO 5XD [facility] Last Admin: 02/16/22 07:14 Dose: 200 mg Heparin Sodium (Porcine) (Heparin Sodium,Porcine 5,000 Unit/Ml Vial) 5,000 unit SUBCUT Q12H [facility] Last Admin: 02/16/22 03:05 Dose: 5,000 unit Sodium Chloride (Ns) 1,000 mls @ 100 mls/hr IVCONT .Q10H [facility] Last Admin: 02/16/22 03:05 Dose: 100 mls/hr Thiamine HCl 100 mg/ Sodium (Chloride) 101 mls @ 202 mls/hr IV DAILY [facility] Last Infusion: 02/15/22 19:55 Dose: Infused Ondansetron HCl (Ondansetron Hcl 4 Mg/2 Ml Vial) 4 mg IVPUSH Q8H PRN PRN Reason: Nausea and Vomiting Oxycodone HCl (Oxycodone Hcl Immed Release 5 Mg Tablet) 20 mg PO Q8H PRN PRN Reason: pain severe Last Admin: 02/16/22 06:07 Dose: 20 mg Pharmacy Consult (Consult Rx Perform Med Rec) 1 each MISCELLANE ONCE PRN PRN Reason: Consult order Pharmacy Consult (Consult Rx Etoh Phenob Im/Po) 1 each MISCELLANE ONCE PRN; Protocol PRN Reason: Consult order Phenobarbital (Phenobarbital 30 Mg Tablet) 60 mg PO BID [facility] Stop: 02/17/22 21:01 Phenobarbital (Phenobarbital 30 Mg Tablet) 30 mg PO BID [facility] Stop: 02/19/22 21:01 Phenobarbital (Phenobarbital 15 Mg Tablet) 15 mg PO DAILY [facility] Stop: 02/21/22 09:01 Sodium Chloride (0.9 % Sodium Chloride Flush 3 Ml Syringe) 3 ml IVFLUSH QSHIFT [facility] Last Admin: 02/15/22 23:48 Dose: 3 ml Home Medications Medication Instructions Recorded Confirmed Last Taken Type alendronate 70 mg/75 mL oral 70 mg PO QWEEK 07/01/21 02/15/22 Unknown History solution amantadine HCl 100 mg capsule 1 cap PO BID 02/15/22 02/15/22 Unknown History carbidopa 25 mg-levodopa 100 mg 1 tab PO 5XD 02/15/22 02/15/22 Unknown History tablet carbidopa ER 25 mg-levodopa 100 mg 1 tab PO QAM 02/15/22 02/15/22 Unknown History tablet,extended release cyclobenzaprine 5 mg tablet 1 tab PO BEDTIME PRN Spasms 02/15/22 02/15/22 Unknown History entacapone 200 mg tablet 1 tab PO 5XD 02/15/22 02/15/22 Unknown History oxycodone 10 mg tablet 2 tab PO Q8H PRN pain 02/15/22 02/15/22 Unknown History simvastatin 20 mg tablet 1 tab PO BEDTIME 02/15/22 02/15/22 Unknown History sulfamethoxazole 800 1 tab PO BID 02/15/22 02/15/22 Unknown History mg-trimethoprim 160 mg tablet Physical Exam Vital Signs: Vital Signs: Last Vital Signs Temp 98.0 F 02/16/22 07:38 Pulse 69 02/16/22 07:38 Resp 20 02/16/22 07:38 BP 141/70 H 02/16/22 07:38 Pulse Ox 94 02/16/22 07:38 O2 Del Method 02/16/22 07:38 BMI result Body Mass Index 25.0 Neuro: Other: Very drowsy. With pain in shouting he barely open his eye but did not say anything and did not follow any commands. There was no gaze deviation or abn ormal body posturing. Moderate rigidity and resistance to movement was noted. Plantars were flexor. Deep tendon reflexes were absent. Results Labs CBC & Chem 7: 02/16/22 08:56 02/16/22 08:56 Labs: Short CBC 02/16/22 Range/Units 08:56 WBC 4.5 L (4.8-10.8) X10*3/uL Hgb 11.2 L (14.0-18.0) g/dl Hct 33.8 L (42.0-52.0) % Plt Count 140 L (160-400) X10*3/uL BMP 02/15/22 02/16/22 18:30 08:56 Sodium 137 137 Potassium 3.6 D Chloride 110 H Carbon Dioxide 19 L BUN 29 H Creatinine 1.37 Calcium 7.7 L D Cardiac Enzymes 02/15/22 02/16/22 Range/Units 11:34 08:56 Total Creatine Kinase 2240 H 1511 H (38-174) U/L Liver Function 02/16/22 Range/Units 08:56 Total Bilirubin 0.6 (0.0-1.0) mg/dL Direct Bilirubin 0.3 (0.0-0.5) mg/dL AST 90 H (5-37) U/L ALT 9 (0-40) U/L Alkaline Phosphatase 80 (39-117) U/L Albumin 3.4 L (3.5-5.0) g/dL Urine 02/15/22 Range/Units 17:18 Urine Color Yellow Urine Appearance Clear Urine pH 5.5 (5.0-9.0) Ur Specific [place] >= 1.030 H (1.005-1.025) Urine Protein Negative (Neg-Trace) mg/dL Urine Glucose (UA) Negative (Negative) mg/dL Head CT did not reveal any acute abnormality. Mild cerebral atrophy was noted Assessment and Plan (1) Encephalopathy: Status: Acute 71 years old man with fair possibility of dementia with Lewy body disease resulting in parkinsonism and behavioral symptomatology. At this time I recommend ruling out infection, appropriate hydration, ruling out any fracture and continuing baseline dose of carbidopa levodopa. PT OT and social service consultation should be obtained for proper placement. Procedures Date of Service Date of Service: 02/16/22
--- NOTE | 2022-02-16 11:18 | HO.PM.IMPN ---
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 for AMS, seizure-like activity not thought to be epileptiform by covering MD Started on phenobarbital for possible EtOH withdrawal Pt agitated afterwards, currently calm Review of Systems Review of Systems: Yes Unobtainable due to mental status Physical Exam Vital Signs: Vital Signs: Last Vital Signs Temp 98.0 F 02/16/22 07:38 Pulse 69 02/16/22 07:38 Resp 20 02/16/22 07:38 BP 141/70 H 02/16/22 07:38 Pulse Ox 94 02/16/22 07:38 O2 Del Method 02/16/22 07:38 BMI result Body Mass Index 25.0 Gen: somnolent HEENT: sclera anicteric, moist mucus membranes Neck: supple Lungs: clear to auscultation bilaterally Heart: regular rate and rhythm, no murmurs Abd: soft, non-tender, non-distended Ext: no edema Skin: warm/well-perfused Neuro: somnolent but arousable, not answering questions Psych: impaired insight Objective Data Active Medications Acetaminophen (Acetaminophen 325 Mg Tablet) 650 mg PO Q6H PRN PRN Reason: Pain, Mild (Pain Scale 1-3) Amantadine HCl (Amantadine Hcl 100 Mg Capsule) 100 mg PO BID [facility] Last Admin: 02/15/22 22:39 Dose: 100 mg Documented By: LIVIER Atorvastatin Calcium (Atorvastatin Calcium 10 Mg Tablet) 10 mg PO BEDTIME [facility] Last Admin: 02/15/22 22:39 Dose: 10 mg Documented By: LIVIER Carbidopa/Levodopa (Carbidopa/Levodopa Cr 25/100 Tablet.Er) 1 tab PO DAILY [facility] Carbidopa/Levodopa (Carbidopa/Levodopa 25/100 Tablet) 1 tab PO 5XD [facility] Last Admin: 02/16/22 06:08 Dose: 1 tab Documented By: NAIMA Cyclobenzaprine HCl (Cyclobenzaprine Hcl 5 Mg Tablet) 5 mg PO BEDTIME PRN PRN Reason: Spasms Entacapone (Entacapone 200 Mg Tablet) 200 mg PO 5XD [facility] Last Admin: 02/16/22 07:14 Dose: 200 mg Documented By: LIVIER Heparin Sodium (Porcine) (Heparin Sodium,Porcine 5,000 Unit/Ml Vial) 5,000 unit SUBCUT Q12H [facility] Last Admin: 02/16/22 03:05 Dose: 5,000 unit Documented By: LIVIER Sodium Chloride (Ns) 1,000 mls @ 100 mls/hr IVCONT .Q10H [facility] Last Admin: 02/16/22 03:05 Dose: 100 mls/hr Documented By: LIVIER Thiamine HCl 100 mg/ Sodium (Chloride) 101 mls @ 202 mls/hr IV DAILY [facility] Last Infusion: 02/15/22 19:55 Dose: 0 mls/hr Documented By: RODNEY Ondansetron HCl (Ondansetron Hcl 4 Mg/2 Ml Vial) 4 mg IVPUSH Q8H PRN PRN Reason: Nausea and Vomiting Oxycodone HCl (Oxycodone Hcl Immed Release 5 Mg Tablet) 20 mg PO Q8H PRN PRN Reason: pain severe Last Admin: 02/16/22 06:07 Dose: 20 mg Documented By: NAIMA Pharmacy Consult (Consult Rx Perform Med Rec) 1 each MISCELLANE ONCE PRN PRN Reason: Consult order Pharmacy Consult (Consult Rx Etoh Phenob Im/Po) 1 each MISCELLANE ONCE PRN; Protocol PRN Reason: Consult order Phenobarbital (Phenobarbital 30 Mg Tablet) 60 mg PO BID [facility] Stop: 02/17/22 21:01 Phenobarbital (Phenobarbital 30 Mg Tablet) 30 mg PO BID [facility] Stop: 02/19/22 21:01 Phenobarbital (Phenobarbital 15 Mg Tablet) 15 mg PO DAILY [facility] Stop: 02/21/22 09:01 Sodium Chloride (0.9 % Sodium Chloride Flush 3 Ml Syringe) 3 ml IVFLUSH QSHIFT [facility] Last Admin: 02/15/22 23:48 Dose: 3 ml Documented By: LIVIER Labs CBC & Chem 7: 02/16/22 08:56 02/16/22 08:56 Labs: Laboratory Results - last 24 hr 02/15/22 02/15/22 02/15/22 08:56 11:34 11:34 MCV MCH MCHC RDW Plt Count MPV Absolute Nucleated RBC Nucleated RBC % (auto) PT 11.5 INR 1.0 APTT 27.8 Anion Gap Estim Creat Clear Calc Estimated GFR POC Glucose 97 Random Glucose Lactic Acid Lactic Acid F/U @ 2Hr Calcium Total Bilirubin Direct Bilirubin AST ALT Alkaline Phosphatase Total Creatine Kinase 2240 H Total Protein Albumin Vitamin B12 Folate Urine Color Urine Appearance Urine pH Ur Specific [place] Urine Protein Urine Glucose (UA) Urine Ketones Urine Blood Urine Nitrite Ur Leukocyte Esterase Urine RBC Urine WBC Ur Squamous Epith Cells Urine Bacteria Hyaline Casts Urine Creatinine Urine Opiates Screen Urine Fentanyl Screen Ur Barbiturates Screen Ur Phencyclidine Scrn Ur Amphetamines Screen U Benzodiazepines Scrn Urine Cocaine Screen U Marijuana (THC) Screen Ethyl Alcohol Influenza Type A (PCR) Influenza Type B (PCR) RSV RNA Qual (PCR) SARS-CoV-2 RNA (RT-PCR) 02/15/22 02/15/22 02/15/22 12:40 17:18 17:18 MCV MCH MCHC RDW Plt Count MPV Absolute Nucleated RBC Nucleated RBC % (auto) PT INR APTT Anion Gap Estim Creat Clear Calc Estimated GFR POC Glucose Random Glucose Lactic Acid Lactic Acid F/U @ 2Hr Calcium Total Bilirubin Direct Bilirubin AST ALT Alkaline Phosphatase Total Creatine Kinase Total Protein Albumin Vitamin B12 Folate Urine Color Yellow Urine Appearance Clear Urine pH 5.5 Ur Specific [place] >= 1.030 H Urine Protein Negative Urine Glucose (UA) Negative Urine Ketones 15 Urine Blood Trace Urine Nitrite Negative Ur Leukocyte Esterase Negative Urine RBC 6-10 H Urine WBC 0-5 Ur Squamous Epith Cells 3-5 Urine Bacteria None Seen Hyaline Casts 0-2 Urine Creatinine 136.37 Urine Opiates Screen Urine Fentanyl Screen Ur Barbiturates Screen Ur Phencyclidine Scrn Ur Amphetamines Screen U Benzodiazepines Scrn Urine Cocaine Screen U Marijuana (THC) Screen Ethyl Alcohol Influenza Type A (PCR) NEGATIVE Influenza Type B (PCR) NEGATIVE RSV RNA Qual (PCR) NEGATIVE SARS-CoV-2 RNA (RT-PCR) NEGATIVE 02/15/22 02/15/22 02/15/22 17:18 17:46 18:30 MCV MCH MCHC RDW Plt Count MPV Absolute Nucleated RBC Nucleated RBC % (auto) PT INR APTT Anion Gap Estim Creat Clear Calc Estimated GFR POC Glucose 91 Random Glucose Lactic Acid 3.1 H* Lactic Acid F/U @ 2Hr Calcium Total Bilirubin Direct Bilirubin AST ALT Alkaline Phosphatase Total Creatine Kinase Total Protein Albumin Vitamin B12 Folate Urine Color Urine Appearance Urine pH Ur Specific [place] Urine Protein Urine Glucose (UA) Urine Ketones Urine Blood Urine Nitrite Ur Leukocyte Esterase Urine RBC Urine WBC Ur Squamous Epith Cells Urine Bacteria Hyaline Casts Urine Creatinine Urine Opiates Screen POSITIVE H Urine Fentanyl Screen Not Detected Ur Barbiturates Screen Not Detected Ur Phencyclidine Scrn Not Detected Ur Amphetamines Screen Not Detected U Benzodiazepines Scrn Not Detected Urine Cocaine Screen Not Detected U Marijuana (THC) Screen Not Detected Ethyl Alcohol Influenza Type A (PCR) Influenza Type B (PCR) RSV RNA Qual (PCR) SARS-CoV-2 RNA (RT-PCR) 02/15/22 02/15/22 02/16/22 18:30 21:37 08:56 MCV 97.1 MCH 32.2 MCHC 33.1 RDW 12.9 Plt Count 140 L MPV 9.1 L Absolute Nucleated RBC 0.000 Nucleated RBC % (auto) 0.0 PT INR APTT Anion Gap Estim Creat Clear Calc Estimated GFR POC Glucose Random Glucose Lactic Acid Lactic Acid F/U @ 2Hr 0.8 Calcium Total Bilirubin Direct Bilirubin AST ALT Alkaline Phosphatase Total Creatine Kinase Total Protein Albumin Vitamin B12 Folate Urine Color Urine Appearance Urine pH Ur Specific [place] Urine Protein Urine Glucose (UA) Urine Ketones Urine Blood Urine Nitrite Ur Leukocyte Esterase Urine RBC Urine WBC Ur Squamous Epith Cells Urine Bacteria Hyaline Casts Urine Creatinine Urine Opiates Screen Urine Fentanyl Screen Ur Barbiturates Screen Ur Phencyclidine Scrn Ur Amphetamines Screen U Benzodiazepines Scrn Urine Cocaine Screen U Marijuana (THC) Screen Ethyl Alcohol < 10 Influenza Type A (PCR) Influenza Type B (PCR) RSV RNA Qual (PCR) SARS-CoV-2 RNA (RT-PCR) 02/16/22 02/16/22 08:56 08:56 MCV MCH MCHC RDW Plt Count MPV Absolute Nucleated RBC Nucleated RBC % (auto) PT INR APTT Anion Gap 12 Estim Creat Clear Calc 55.8 Estimated GFR 52 POC Glucose Random Glucose 97 Lactic Acid Lactic Acid F/U @ 2Hr Calcium 7.7 L D Total Bilirubin 0.6 Direct Bilirubin 0.3 AST 90 H ALT 9 Alkaline Phosphatase 80 Total Creatine Kinase 1511 H Total Protein 5.6 L Albumin 3.4 L Vitamin B12 294 Folate 8.6 Urine Color Urine Appearance Urine pH Ur Specific [place] Urine Protein Urine Glucose (UA) Urine Ketones Urine Blood Urine Nitrite Ur Leukocyte Esterase Urine RBC Urine WBC Ur Squamous Epith Cells Urine Bacteria Hyaline Casts Urine Creatinine Urine Opiates Screen Urine Fentanyl Screen Ur Barbiturates Screen Ur Phencyclidine Scrn Ur Amphetamines Screen U Benzodiazepines Scrn Urine Cocaine Screen U Marijuana (THC) Screen Ethyl Alcohol Influenza Type A (PCR) Influenza Type B (PCR) RSV RNA Qual (PCR) SARS-CoV-2 RNA (RT-PCR) Impressions Hand X-Ray 02/15/22 13:15 IMPRESSION: Lateral view limited due to patient positioning/rotation. Question ossification in between the lunate, distal radius and distal ulna. Additional imaging recommended. Renal Ultrasound 02/15/22 14:29 IMPRESSION: Limited exam. The right kidney is unremarkable. The left kidney is not seen. Assessment and Plan (1) Encephalopathy: Status: Acute (2) Ulnar fracture: Status: Acute Plan d#2 71yo M with Parkinson's Disease who presents after a fall in his backyard without LOC.? He sustained fractures of his left ulna and 4th and 5th metacarpals.? He has acute kidney injury with mild hyperkalemia and rhabdomyolysis.? He is confused and appears to be confabulating. # ABDIRIZAK - Presumed prerenal plus tubular injury from TMP/SMX. Markedly improved with IV isotonic fluid hydration. # Traumatic rhabdomyolysis - Continue IV fluids, trend CPK, which is coming down. # HyperK - Resolved s/p 1 dose of SPS # Lactic acidosis - Resolved with IV fluid hydration. Not septic; likely dehydration. # Acute encephalopathy, unable to specify at this time. - Unclear what his baseline mental status is and what degree of Parkinson's dementia he might have.? His friends are unable to comment on whether he has been diagnosed with any kind of dementia - Given possible EtOH history, confabulation, and AST elevated over ALT, giving phenobarbital taper for possible EtOH withdrawal. Also sent thiamine level and giving empiric IV thiamine. - Neurology consultation - [employer] AGENT consultation # Acute left ulna and 4th + 5th metacarpal fractures - in splint currently; Hand Surgery consult pending # Parksinon's disease - continue carbidopa/levodopa, amantadine, and entacapone # VTE prophylaxis: UFH In my clinical judgment, the patient requires continued inpatient hospitalization for the following reasons: encephalopathy, rhabdomyolysis Quality Stroke Does the patient have a stroke diagnosis?: No VTE Prior VTE?: No VTE Risk Level:: Medical - moderate - high VTE Device Contraindication: N/A - Device Ordered VTE Drug Contraindication: N/A - Med Ordered
[2022-02-16 11:38] VITALS: BP 143/67; PULSE 86; RESP 20; TEMP 36.8; O2SAT 97
[2022-02-16 11:51] LABS: Magnesium 2.3 mg/dL (1.6-2.6)
--- NOTE | 2022-02-16 13:38 | MHC.CM.PN ---
Patient is here with Acute Encephalopathy/s/s of Confusion/AMS & S/S of Agitation; CM spoke with Primary Contact and Friend of 40 years/María [facility] ). If Patients MS improves, CM will provide the opportunity for Patient to execute a HCP. Per María, Patient lives alone and experiences frequent falls r/t his Parkinsons. Home with new VNA VS STR pending a PT eval is the tentative dc plan and CM has initiated and will follows for dc planning. Patient lives alone and has no family in this area ( Sister in [place], Sister in [place], and a Brother in [place] with Brain CA). Patient has received Covid vax X5 and he is unable to provide the name of his PCP today.
[2022-02-16 16:00] VITALS: BP 156/70; PULSE 70; RESP 18; TEMP 37.2; O2SAT 97
--- NOTE | 2022-02-16 16:49 | MHC.SLORD ---
Addendum entered and electronically signed by RUFINO Prasad 02/16/22 16:59: SW Original Note: Speech Language Pathology Order Status: [employer] attempted to see pt multiple times for bedside swallow evaluation. Pt initially inappropriate for PO trials earlier this morning d/t lethargic state. In subsequent attempts pt was physically combative and had accident in bed that required nursing assistance. Per staff, pt tolerated meds crushed in puree 2X today. Per staff, pt tolerated bites of shepards pie with no coughing observed. Pt's diet order is currently listed as regular solids and thin liquids. [employer]ECT did not observe or give any PO trials on this date.
[2022-02-16] MEDS: Haloperidol Lactate 5 MG/ML VIAL 2.5 MG IM (17:33)
[2022-02-16 19:39] VITALS: BP 151/77; PULSE 67; RESP 18; O2SAT 96
[2022-02-16 23:48] VITALS: BP 157/73; PULSE 65; RESP 20; TEMP 36.6; O2SAT 96
[2022-02-17] MEDS: 0.9 % Sodium Chloride 1,000 ML 100 ML IVCONT ×2 (00:12→09:12)
[2022-02-17] MEDS: Acetaminophen 325 MG TABLET 650 MG PO (00:23)
[2022-02-17 03:45] VITALS: BP 126/83; PULSE 65; RESP 20; O2SAT 96
[2022-02-17] MEDS: Heparin Sodium,Porcine 5,000 UNIT/ML VIAL 5000 UNIT SUBCUT ×2 (05:06→18:16)
[2022-02-17] MEDS: Carbidopa/Levodopa 25/100 TABLET 1 TAB PO ×5 (05:06→21:45)
[2022-02-17 07:11] LABS: Hemoglobin 11.6 g/dl (14.0-18.0); Mean Corpuscular HGB Conc 33.1 g/dl (31.0-36.0); Mean Corpuscular Hemoglobin 31.9 pg (27.0-33.0); Mean Corpuscular Volume 96.2 fL (80.0-98.0); Mean Platelet Volume 9.2 fL (9.4-12.4); Platelet Count 125 X10*3/uL (160-400); Red Blood Count 3.64 X10*6/uL (4.60-5.80); Red Cell Distribution Width 12.7 % (11.0-16.0); White Blood Count 3.6 X10*3/uL (4.8-10.8)
[2022-02-17 07:26] LABS: Alanine Aminotransferase 10 U/L (0-40); Albumin Level 3.3 g/dL (3.5-5.0); Alkaline Phosphatase 80 U/L (39-117); Anion Gap 12 (12-20); Aspartate Amino Transferase 75 U/L (5-37); Bilirubin Total 0.5 mg/dL (0.0-1.0); Blood Urea Nitrogen 13 mg/dL (9-16); Calcium 7.6 mg/dL (8.4-10.2); Carbon Dioxide 19 mmol/L (22-29); Chloride 111 mmol/L (96-108); Creatinine Clr Calc Pharmacy 86.9; Estimated Glomerular Filt Rate > 60; Glucose Random 103 mg/dL (60-115); Potassium 3.5 mmol/L (3.3-5.1); Sodium 138 mmol/L (135-145); Total Protein 5.5 g/dL (6.5-8.0)
[2022-02-17 07:41] VITALS: BP 137/66; PULSE 69; RESP 18; TEMP 36.8; O2SAT 97
[2022-02-17] MEDS: Thiamine HCL 100 MG in 0.9 % Sodium Chloride 100 ML 202 MG IV (09:03)
[2022-02-17] MEDS: 0.9 % Sodium Chloride Flush 3 ML SYRINGE IVFLUSH ×2 (09:14→18:16)
[2022-02-17] MEDS: amantadine HCL 100 MG CAPSULE PO (09:18)
--- NOTE | 2022-02-17 09:23 | P.CONOP_ITS ---
History of Present Illness HPI Consult date: 02/17/22 Chief complaint: ABDIRIZAK, rhabdomyolysis, hand fractures Narrative: 71 yo male with parkinsons admitted to the medical service after sustaining a fall onto the left side resulting in an ulna fracture and fracture through the 4th and 5th metacarpal shaft. He was admitted for ABDIRIZAK. Orthopedics was consulted for further recommendations. Patient is baseline confused, unable to obtain thorough history. I spoke with María, his friend who states he is independent with most of his care. She does help when needed. He does use a wheelchair and cane. Review of Systems Review of Systems: per hpi [facility] Past Medical History Medical History (Updated 02/16/22 @ 11:01 by Len Santiago MD) Adrenal adenoma Atherosclerosis Osteoporosis Parkinson disease Spinal stenosis Family History Family History (Updated 02/15/22 @ 15:38 by Sarah Clark MD) Father CVA (cerebral vascular accident) Surgical History Surgical History (Updated 02/15/22 @ 15:38 by Sarah Clark MD) History of back surgery History of lumbar fusion Social History Social History Household Members: None Housing: House Unable to assess alcohol history related to: Unable to respond and Unknown Alcohol intake: never Patient Tobacco Use Status: Former Tobacco user Advance Directives Date on File: 02/15/22 service: No Current occupational status: retired Meds Allergies Allergy/AdvReac Type Severity Reaction Status Date / Time No Known Allergies Allergy Unverified 07/01/21 13:06 Active Medications: Current Medications Acetaminophen (Acetaminophen 325 Mg Tablet) 650 mg PO Q6H PRN PRN Reason: Pain, Mild (Pain Scale 1-3) Last Admin: 02/17/22 00:23 Dose: 650 mg Amantadine HCl (Amantadine Hcl 100 Mg Capsule) 100 mg PO BID [facility] Last Admin: 02/17/22 09:18 Dose: 100 mg Atorvastatin Calcium (Atorvastatin Calcium 10 Mg Tablet) 10 mg PO BEDTIME [facility] Last Admin: 02/16/22 21:07 Dose: Not Given Carbidopa/Levodopa (Carbidopa/Levodopa Cr 25/100 Tablet.Er) 1 tab PO DAILY [facility] Last Admin: 02/16/22 13:19 Dose: Not Given Carbidopa/Levodopa (Carbidopa/Levodopa 25/100 Tablet) 1 tab PO 5XD [facility] Last Admin: 02/17/22 05:06 Dose: 1 tab Entacapone (Entacapone 200 Mg Tablet) 200 mg PO 5XD [facility] Last Admin: 02/17/22 09:18 Dose: 200 mg Heparin Sodium (Porcine) (Heparin Sodium,Porcine 5,000 Unit/Ml Vial) 5,000 unit SUBCUT Q12H [facility] Last Admin: 02/17/22 05:06 Dose: 5,000 unit Sodium Chloride (Ns) 1,000 mls @ 100 mls/hr IVCONT .Q10H [facility] Last Admin: 02/17/22 09:12 Dose: 100 mls/hr Thiamine HCl 100 mg/ Sodium (Chloride) 101 mls @ 202 mls/hr IV DAILY [facility] Last Admin: 02/17/22 09:03 Dose: 202 mls/hr Ondansetron HCl (Ondansetron Hcl 4 Mg/2 Ml Vial) 4 mg IVPUSH Q8H PRN PRN Reason: Nausea and Vomiting Pharmacy Consult (Consult Rx Perform Med Rec) 1 each MISCELLANE ONCE PRN PRN Reason: Consult order Pharmacy Consult (Consult Rx Etoh Phenob Im/Po) 1 each MISCELLANE ONCE PRN; Protocol PRN Reason: Consult order Sodium Chloride (0.9 % Sodium Chloride Flush 3 Ml Syringe) 3 ml IVFLUSH QSHIFT [facility] Last Admin: 02/17/22 09:14 Dose: 3 ml Home Medications Medication Instructions Recorded Confirmed Last Taken Type alendronate 70 mg/75 mL oral 70 mg PO QWEEK 07/01/21 02/15/22 Unknown History solution amantadine HCl 100 mg capsule 1 cap PO BID 02/15/22 02/15/22 Unknown History carbidopa 25 mg-levodopa 100 mg 1 tab PO 5XD 02/15/22 02/15/22 Unknown History tablet carbidopa ER 25 mg-levodopa 100 mg 1 tab PO QAM 02/15/22 02/15/22 Unknown History tablet,extended release cyclobenzaprine 5 mg tablet 1 tab PO BEDTIME PRN Spasms 02/15/22 02/15/22 Unknown History entacapone 200 mg tablet 1 tab PO 5XD 02/15/22 02/15/22 Unknown History oxycodone 10 mg tablet 2 tab PO Q8H PRN pain 02/15/22 02/15/22 Unknown History simvastatin 20 mg tablet 1 tab PO BEDTIME 02/15/22 02/15/22 Unknown History sulfamethoxazole 800 1 tab PO BID 02/15/22 02/15/22 Unknown History mg-trimethoprim 160 mg tablet Physical Exam Vital Signs: Vital Signs: Last Vital Signs Temp 98.3 F 02/17/22 07:41 Pulse 69 02/17/22 07:41 Resp 18 02/17/22 07:41 BP 137/66 02/17/22 07:41 Pulse Ox 97 02/17/22 07:41 O2 Del Method 02/17/22 07:41 BMI result Body Mass Index 25.0 Const: General: cooperative and no acute distress Orientation/consciousness: patient oriented x3 Resp: Effort & Inspection: normal respiratory effort and able to speak in complete sentences Cardio: Peripheral pulses: Peripheral pulses 2+ throughout Neuro: General: patient oriented x3 Extrem: Other: Left forearm splint clean, dry and intact. He is able to move fingers, NVI. Results Labs Result Diagrams: 02/17/22 07:00 02/17/22 07:00 Labs: Abnormal lab results 02/16/22 02/17/22 02/17/22 Range/Units 08:56 07:00 07:00 WBC 3.6 L (4.8-10.8) X10*3/uL RBC 3.64 L (4.60-5.80) X10*6/uL Hgb 11.6 L (14.0-18.0) g/dl Hct 35.0 L (42.0-52.0) % Plt Count 125 L (160-400) X10*3/uL MPV 9.2 L (9.4-12.4) fL Chloride 110 H 111 H (96-108) mmol/L Carbon Dioxide 19 L 19 L (22-29) mmol/L BUN 29 H (9-16) mg/dL Calcium 7.7 L D 7.6 L (8.4-10.2) mg/dL AST 90 H 75 H (5-37) U/L Total Creatine Kinase 1511 H (38-174) U/L Total Protein 5.6 L 5.5 L (6.5-8.0) g/dL Albumin 3.4 L 3.3 L (3.5-5.0) g/dL H & H 02/15/22 02/16/22 02/17/22 Range/Units 09:35 08:56 07:00 Hgb 12.2 L 11.2 L 11.6 L (14.0-18.0) g/dl Hct 36.0 L 33.8 L 35.0 L (42.0-52.0) % Coagulation 02/15/22 Range/Units 11:34 INR 1.0 (0.9-1.1) All other labs normal. Assessment and Plan (1) Ulnar fracture: Status: Acute (2) Metacarpal bone fracture: Status: Acute Plan I spoke with Dr Capone regarding the patient and the extent of his medical history. The patients Friend is going to come in [facility] 3pm today to talk with him about what he wants to do. It is unclear if the patient is able to sign his own consents at this time if we did proceed with surgical intervention. I did explain to María the procedure in detail and care afterwards which would include a period of immobilization and close f/u for xrays and wound checks. I also explained He would not be able to use the left hand for pushing, pulling or carrying for up to 8 weeks, with or without surgery. At this time we will await further recommendations from Dr Capone once María comes to see Tony. Procedures Date of Service Date of Service: 02/17/22
[2022-02-17 11:21] VITALS: BP 141/74; PULSE 71; RESP 16; TEMP 36.6; O2SAT 97
[2022-02-17] MEDS: Carbidopa/Levodopa CR 25/100 TABLET.ER 1 TAB PO (11:45)
[2022-02-17 15:07] VITALS: BP 172/80; PULSE 89; RESP 17; TEMP 36.1; O2SAT 96
--- NOTE | 2022-02-17 15:37 | P.PNIM_ITS ---
Subjective Subjective Date of Service: 02/17/22 Interval History: seen and examined this morning follow up for encephalopathy, ABDIRIZAK still appears confused this morning- able to tell me his name, that he is in the hospital and the year but intermittently tearful and confused to situation difficult to obtain full ROS but reports left rib pain no chest pain, no sob Review of Systems Review of Systems: Yes all other systems are reviewed and are negative Constitutional Constitutional: Denies chills and Denies fever(s) Cardiovascular Cardiovascular: Denies chest pain, Denies palpitations and Denies dyspnea Respiratory Respiratory: Denies dyspnea Neurologic Neurologic: Reports confusion Psychiatric Psychiatric: Reports confusion Endocrine Endocrine: Denies palpitations Physical Exam Vital Signs: Vital Signs: Last Vital Signs Temp 96.9 F 02/17/22 15:07 Pulse 89 02/17/22 15:07 Resp 17 02/17/22 15:07 BP 172/80 H 02/17/22 15:07 Pulse Ox 96 02/17/22 15:07 O2 Del Method 02/17/22 15:07 BMI result Body Mass Index 25.0 Const: Other: tearful General: alert, awake and confusion Nutritional Appearance: average body habitus Orientation/consciousness: confusion Resp: Effort & Inspection: normal respiratory effort and able to speak in complete sentences Cardio: Rate: regular rate Heart sounds: S1 normal heart sound present and S2 normal heart sound present GI: Inspection: No distended Palpation (GI): Soft to palpation Neuro: General: confusion Extrem: Other: left arm in splint hand to elbow, hand warm General: Yes no pedal edema Objective Data Active Medications Acetaminophen (Acetaminophen 325 Mg Tablet) 650 mg PO Q6H PRN PRN Reason: Pain, Mild (Pain Scale 1-3) Last Admin: 02/17/22 00:23 Dose: 650 mg Documented By: CAMERON Amantadine HCl (Amantadine Hcl 100 Mg Capsule) 100 mg PO BID [facility] Last Admin: 02/17/22 09:18 Dose: 100 mg Documented By: MARIO Atorvastatin Calcium (Atorvastatin Calcium 10 Mg Tablet) 10 mg PO BEDTIME [facility] Last Admin: 02/16/22 21:07 Dose: Not Given Documented By: CARMEN Non-Admin Reason: Patient Refused Carbidopa/Levodopa (Carbidopa/Levodopa Cr 25/100 Tablet.Er) 1 tab PO DAILY [facility] Last Admin: 02/17/22 11:45 Dose: 1 tab Documented By: MARIO Carbidopa/Levodopa (Carbidopa/Levodopa 25/100 Tablet) 1 tab PO 5XD [facility] Last Admin: 02/17/22 14:46 Dose: 1 tab Documented By: MARIO Entacapone (Entacapone 200 Mg Tablet) 200 mg PO 5XD [facility] Last Admin: 02/17/22 14:46 Dose: 200 mg Documented By: MARIO Heparin Sodium (Porcine) (Heparin Sodium,Porcine 5,000 Unit/Ml Vial) 5,000 unit SUBCUT Q12H [facility] Last Admin: 02/17/22 05:06 Dose: 5,000 unit Documented By: CAMERON Sodium Chloride (Ns) 1,000 mls @ 100 mls/hr IVCONT .Q10H [facility] Last Admin: 02/17/22 09:12 Dose: 100 mls/hr Documented By: MARIO Thiamine HCl 100 mg/ Sodium (Chloride) 101 mls @ 202 mls/hr IV DAILY [facility] Last Infusion: 02/17/22 09:49 Dose: 0 mls/hr Documented By: MARIO Ondansetron HCl (Ondansetron Hcl 4 Mg/2 Ml Vial) 4 mg IVPUSH Q8H PRN PRN Reason: Nausea and Vomiting Pharmacy Consult (Consult Rx Perform Med Rec) 1 each MISCELLANE ONCE PRN PRN Reason: Consult order Pharmacy Consult (Consult Rx Etoh Phenob Im/Po) 1 each MISCELLANE ONCE PRN; Protocol PRN Reason: Consult order Sodium Chloride (0.9 % Sodium Chloride Flush 3 Ml Syringe) 3 ml IVFLUSH QSHIFT [facility] Last Admin: 02/17/22 09:14 Dose: 3 ml Documented By: MARIO Labs CBC & Chem 7: 02/17/22 07:00 02/17/22 07:00 Labs: Laboratory Results - last 24 hr 02/17/22 02/17/22 07:00 07:00 MCV 96.2 MCH 31.9 MCHC 33.1 RDW 12.7 Plt Count 125 L MPV 9.2 L Absolute Nucleated RBC 0.000 Nucleated RBC % (auto) 0.0 Anion Gap 12 Estim Creat Clear Calc 86.9 Estimated GFR > 60 Random Glucose 103 Calcium 7.6 L Total Bilirubin 0.5 AST 75 H ALT 10 Alkaline Phosphatase 80 Total Protein 5.5 L Albumin 3.3 L Assessment and Plan (1) Encephalopathy: Status: Acute (2) Ulnar fracture: Status: Acute (3) Acute kidney failure: Status: Acute (4) Rhabdomyolysis: Status: Acute Plan d#2 71yo M with Parkinson's Disease who presents after a fall in his backyard without LOC.? He sustained fractures of his left ulna and 4th and 5th metacarpals.? He has acute kidney injury with mild hyperkalemia and rhabdomyolysis.? He is confused and appears to be confabulating. # ABDIRIZAK -Presumed prerenal plus tubular injury from TMP/SMX. resolved with IVF # Traumatic rhabdomyolysis CPK trending down # Acute encephalopathy, unable to specify at this time. brain CT negative UA, CXR negative for infection Unclear what his baseline mental status is although friends state that he had no signs of dementia, was previously living alone initially treated with phenobarbatol, but d/c as thought to be less likely after obtaining collateral info from friends seen by neurology - no further workup recommended at this time seen by speech CNC MACHINE OPERATOR consultation - rec to continue regular diet and thin liquids and pills whole with liquid # HyperK - Resolved s/p 1 dose of SPS # Lactic acidosis - Resolved with IV fluid hydration. Not septic; likely dehydration. # Acute left ulna and 4th + 5th metacarpal fractures in splint currently ortho following - may need surgical intervention # Parksinon's disease - continue carbidopa/levodopa, amantadine, and entacapone #thrombocytopenia no baseline for comparison -follow CBC # VTE prophylaxis: [facility] attending - dr. osman In my clinical judgment, the patient requires continued inpatient hospitalization for the following reasons: encephalopathy, rhabdomyolysis Quality Stroke Does the patient have a stroke diagnosis?: No VTE Prior VTE?: No VTE Risk Level:: Medical - moderate - high VTE Device Contraindication: N/A - Device Ordered VTE Drug Contraindication: N/A - Med Ordered
[2022-02-17 19:10] VITALS: BP 179/82; PULSE 72; RESP 19; TEMP 36.8; O2SAT 96
--- NOTE | 2022-02-17 19:13 | MHC.SL.SWA ---
Speech Pathologist Impression: Risk of Aspiration Due to: Neurological Condition Dysphasia Diet Status: Mild oral phase dysphagia Liquid Consistency and Strategies for Safe Swallow: Liquid Intake Recommendation: Thin Liquid Intake Strategies: Small Sips Solid Food Consistency: Dietary Recommendations: Regular Additional Modifications to Solid Foods: Oral Medication Intake: Crushed with Puree Please contact the pharmacy regarding appropriate crushable or liquid drug formulations that are available whenever modified delivery is recommended. Compensatory Strategies and Precautions to be Taken for Safe Swallow: Sitting Upright (90 deg) Alternate Liquids/Solids Supervision While Eating and Drinking for Safe Swallow: None Needed Foods to Avoid: Swallowing Recommended Treatments: Recommendation for Speech: NA:Typical Evaluation Comment: Patient presents with a mild oral phase dysphagia, characterized by slow mastication of harder solid foods. All other aspects of swallow presented as WFL, with patient managing thin liquids and advanced solids. MD reported that patient has some difficulty taking pills with water with nursing, as a result, recommend pills crushed in puree as easier method/pathway for med administration. Recommend patient continue on current diet of REGULAR with THIN liquids. As this is patients baseline, patient has been tolerating this diet well as inpatient, recommend no further IN FLIGHT REFUELING OPERATOR services. YOLY HUSTON notified of recommendation by secure text, nursing in person. Frequency/Duration: Date Range for Service Req: Timeline to reassess: Supervisor [employer]oultry Farm Clinican/Clinical Fellow: No Supervisory Statement: I have reviewed and agree with the student/clinical fellow's documentation: N/A Speech Language Pathologist: Malathi Bianchi M.A., CCC-IN FLIGHT REFUELING OPERATOR
[2022-02-17] MEDS: Atorvastatin Calcium 10 MG TABLET PO (21:45)
[2022-02-18] VITALS (8 sets, daily range): BP systolic 117–161; BP diastolic 56–83; PULSE 60–69; RESP 14–20; TEMP 36.6–37.1; O2SAT 96–97
[2022-02-18] MEDS: 0.9 % Sodium Chloride Flush 3 ML SYRINGE IVFLUSH ×3 (03:14→15:40)
[2022-02-18] MEDS: Heparin Sodium,Porcine 5,000 UNIT/ML VIAL 5000 UNIT SUBCUT ×2 (04:40→15:40)
[2022-02-18] MEDS: Carbidopa/Levodopa 25/100 TABLET 1 TAB PO ×5 (06:09→21:55)
[2022-02-18 07:16] LABS: Hematocrit 35.5 % (42.0-52.0); Hemoglobin 11.9 g/dl (14.0-18.0); Mean Corpuscular HGB Conc 33.5 g/dl (31.0-36.0); Mean Corpuscular Hemoglobin 31.8 pg (27.0-33.0); Mean Corpuscular Volume 94.9 fL (80.0-98.0); Mean Platelet Volume 9.2 fL (9.4-12.4); Platelet Count 139 X10*3/uL (160-400); Red Blood Count 3.74 X10*6/uL (4.60-5.80); Red Cell Distribution Width 12.7 % (11.0-16.0); White Blood Count 4.7 X10*3/uL (4.8-10.8)
[2022-02-18 08:12] LABS: Anion Gap 11 (12-20); Blood Urea Nitrogen 6 mg/dL (9-16); Calcium 7.9 mg/dL (8.4-10.2); Carbon Dioxide 22 mmol/L (22-29); Chloride 111 mmol/L (96-108); Creatinine Clr Calc Pharmacy 96.8; Estimated Glomerular Filt Rate > 60; Glucose Random 107 mg/dL (60-115); Potassium 3.4 mmol/L (3.3-5.1); Sodium 141 mmol/L (135-145)
[2022-02-18] MEDS: Carbidopa/Levodopa CR 25/100 TABLET.ER 1 TAB PO (09:37)
[2022-02-18] MEDS: amantadine HCL 100 MG CAPSULE PO ×2 (09:37→21:55)
[2022-02-18] MEDS: Thiamine HCL 100 MG in 0.9 % Sodium Chloride 100 ML 202 MG IV (09:54)
[2022-02-18 10:24] LABS: CDiff Gene PCR NEGATIVE (Negative)
[2022-02-18 10:50] LABS: Leukocytes Stool Qualitative NEGATIVE (NEGATIVE)
[2022-02-18 11:43] LABS: Adenovirus F 40/41 Not Detected (Not Detect.); Astrovirus Not Detected (Not Detect.); Campylobacter Not Detected (Not Detect.); Cryptosporidium Not Detected (Not Detect.); Cyclospora cayetanensis Not Detected (Not Detect.); E. coli EAEC Not Detected (Not Detect.); E. coli EPEC Not Detected (Not Detect.); E. coli ETEC Not Detected (Not Detect.); E. coli STEC Not Detected (Not Detect.); Entamoeba histolytica Not Detected (Not Detect.); Giardia lamblia Not Detected (Not Detect.); Norovirus GI/GII Not Detected (Not Detect.); Plesiomonas shigelloides Not Detected (Not Detect.); Rotavirus A Not Detected (Not Detect.); Salmonella Not Detected (Not Detect.); Sapovirus Not Detected (Not Detect.); Shigella sp./EIEC Not Detected (Not Detect.); Vibrio Not Detected (Not Detect.); Vibrio Cholerae Not Detected (Not Detect.); Yersinia enterocolitica Not Detected (Not Detect.)
--- NOTE | 2022-02-18 13:43 | P.PNIM_ITS ---
Subjective Subjective Date of Service: 02/18/22 Interval History: Seen and examined this morning Follow-up for left arm fracture encephalopathy Patient awake alert oriented this morning. He is able to tell me his name, date, location and give accurate medical information. He left arm pain appears to be well controlled Review of Systems Review of Systems: Yes all other systems are reviewed and are negative Constitutional Constitutional: Denies chills and Denies fever(s) Cardiovascular Cardiovascular: Denies chest pain, Denies palpitations and Denies dyspnea Respiratory Respiratory: Denies cough and Denies dyspnea Gastrointestinal Gastrointestinal: Denies abdominal pain, Denies nausea and Denies vomiting Endocrine Endocrine: Denies palpitations Physical Exam Vital Signs: Vital Signs: Last Vital Signs Temp 97.8 F 02/18/22 10:57 Pulse 69 02/18/22 11:30 Resp 20 02/18/22 10:57 BP 135/61 02/18/22 11:30 Pulse Ox 97 02/18/22 11:30 O2 Del Method 02/18/22 10:57 BMI result Body Mass Index 25.0 Const: General: alert and awake Nutritional Appearance: thin Orientation/consciousness: patient oriented x3 Resp: Effort & Inspection: normal respiratory effort and able to speak in complete sentences Cardio: Rate: regular rate Heart sounds: S1 normal heart sound present and S2 normal heart sound present GI: Inspection: No distended Palpation (GI): Soft to palpation Neuro: General: patient oriented x3 Extrem: Other: left arm in cast from hand to aboe elbow. left hand warm, well perfused Objective Data Active Medications Acetaminophen (Acetaminophen 325 Mg Tablet) 650 mg PO Q6H PRN PRN Reason: Pain, Mild (Pain Scale 1-3) Last Admin: 02/17/22 00:23 Dose: 650 mg Documented By: CAMERON Amantadine HCl (Amantadine Hcl 100 Mg Capsule) 100 mg PO BID [facility] Last Admin: 02/18/22 09:37 Dose: 100 mg Documented By: THU Atorvastatin Calcium (Atorvastatin Calcium 10 Mg Tablet) 10 mg PO BEDTIME [facility] Last Admin: 02/17/22 21:45 Dose: 10 mg Documented By: KAROLINA Carbidopa/Levodopa (Carbidopa/Levodopa Cr 25/100 Tablet.Er) 1 tab PO DAILY [facility] Last Admin: 02/18/22 09:37 Dose: 1 tab Documented By: THU Carbidopa/Levodopa (Carbidopa/Levodopa 25/100 Tablet) 1 tab PO 5XD [facility] Last Admin: 02/18/22 12:16 Dose: 1 tab Documented By: THU Entacapone (Entacapone 200 Mg Tablet) 200 mg PO 5XD [facility] Last Admin: 02/18/22 09:37 Dose: 200 mg Documented By: HTU Heparin Sodium (Porcine) (Heparin Sodium,Porcine 5,000 Unit/Ml Vial) 5,000 unit SUBCUT Q12H [facility] Last Admin: 02/18/22 04:40 Dose: 5,000 unit Documented By: KAROLINA Ondansetron HCl (Ondansetron Hcl 4 Mg/2 Ml Vial) 4 mg IVPUSH Q8H PRN PRN Reason: Nausea and Vomiting Pharmacy Consult (Consult Rx Perform Med Rec) 1 each MISCELLANE ONCE PRN PRN Reason: Consult order Pharmacy Consult (Consult Rx Etoh Phenob Im/Po) 1 each MISCELLANE ONCE PRN; Protocol PRN Reason: Consult order Sodium Chloride (0.9 % Sodium Chloride Flush 3 Ml Syringe) 3 ml IVFLUSH QSHIFT [facility] Last Admin: 02/18/22 09:39 Dose: 3 ml Documented By: THU Labs CBC & Chem 7: 02/18/22 06:57 02/18/22 06:57 Labs: Laboratory Results - last 24 hr 02/18/22 02/18/22 02/18/22 06:57 06:57 Unknown MCV 94.9 MCH 31.8 MCHC 33.5 RDW 12.7 Plt Count 139 L MPV 9.2 L Absolute Nucleated RBC 0.000 Nucleated RBC % (auto) 0.0 Anion Gap 11 L Estim Creat Clear Calc 96.8 Estimated GFR > 60 Random Glucose 107 Calcium 7.9 L Total Creatine Kinase 325 H Stool Leukocytes, Qual NEGATIVE Stl C. cayetanensis PCR Stool Rotavirus A PCR Stl Adenov F 40/41 PCR Stool Astrovirus (PCR) Stool Campylobacter PCR Stool Cryptosporidium PCR Stl Sh Tox Pr E STEC PCR Stool E coli O157 PCR Stl Enterotoxigenic E PCR Stool EPEC (PCR) Stool EAEC (PCR) Stl E. histolytica PCR Stool Giardia Lamblia PCR Stl P. shigelloides PCR Stool Salmonella PCR Stool Sapovirus (PCR) Stl Shigella/EIEC PCR St Y.enterocolitica PCR Stool Vibrio (PCR) Stl Vibrio cholerae PCR Stl Norovirus GI/GII PCR C. difficile Tox B Gene 02/18/22 02/18/22 Unknown Unknown MCV MCH MCHC RDW Plt Count MPV Absolute Nucleated RBC Nucleated RBC % (auto) Anion Gap Estim Creat Clear Calc Estimated GFR Random Glucose Calcium Total Creatine Kinase Stool Leukocytes, Qual Stl C. cayetanensis PCR Not Detected Stool Rotavirus A PCR Not Detected Stl Adenov F 40/41 PCR Not Detected Stool Astrovirus (PCR) Not Detected Stool Campylobacter PCR Not Detected Stool Cryptosporidium PCR Not Detected Stl Sh Tox Pr E STEC PCR Not Detected Stool E coli O157 PCR Not applicable Stl Enterotoxigenic E PCR Not Detected Stool EPEC (PCR) Not Detected Stool EAEC (PCR) Not Detected Stl E. histolytica PCR Not Detected Stool Giardia Lamblia PCR Not Detected Stl P. shigelloides PCR Not Detected Stool Salmonella PCR Not Detected Stool Sapovirus (PCR) Not Detected Stl Shigella/EIEC PCR Not Detected St Y.enterocolitica PCR Not Detected Stool Vibrio (PCR) Not Detected Stl Vibrio cholerae PCR Not Detected Stl Norovirus GI/GII PCR Not Detected C. difficile Tox B Gene NEGATIVE Assessment and Plan (1) Ulnar fracture: Status: Acute (2) Metacarpal bone fracture: Status: Acute Plan 71yo M with Parkinson's Disease who presents after a fall in his backyard without LOC.? He sustained fractures of his left ulna and 4th and 5th metacarpals.? He has acute kidney injury with mild hyperkalemia and rhabdomyolysis.? He is confused and appears to be confabulating. # ABDIRIZAK -Presumed prerenal plus tubular injury from TMP/SMX. resolved with IVF # Traumatic rhabdomyolysis CPK trending down # Acute encephalopathy, unable to specify at this time. 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 Not septic; likely dehydration. # Acute left ulna and 4th + 5th metacarpal fractures in splint currently ortho following - plan for nonsurgical management - No lifting more than a coffee cup. Outpatient follow-up with Ortho in 2 weeks for repeat x-rays and possible cast # Parksinon's disease - continue carbidopa/levodopa, amantadine, and entacapone #thrombocytopenia no baseline for comparison stable -follow CBC # VTE prophylaxis: [facility] attending - dr. dawson griffiths - seen by PT - rec STR In my clinical judgment, the patient requires continued inpatient hospitalizatio n for the following reasons: encephalopathy, rhabdomyolysis Quality Stroke Does the patient have a stroke diagnosis?: No VTE Prior VTE?: No VTE Risk Level:: Medical - moderate - high VTE Device Contraindication: N/A - Device Ordered VTE Drug Contraindication: N/A - Med Ordered
--- NOTE | 2022-02-18 14:11 | P.PNOP_ITS ---
Subjective Subjective Date of Service: 02/18/22 Interval history: Patient resting comfortably in bed. No pain reported. Left upper extremity splinted but not fitting well. No additional complaints. Physical Exam Vital Signs: Vital Signs: Last Vital Signs Temp 97.8 F 02/18/22 10:57 Pulse 69 02/18/22 11:30 Resp 20 02/18/22 10:57 BP 135/61 02/18/22 11:30 Pulse Ox 97 02/18/22 11:30 O2 Del Method 02/18/22 10:57 BMI result Body Mass Index 25.0 Const: General: cooperative, healthy appearing and no acute distress O rientation/consciousness: patient oriented x3 Resp: Effort & Inspection: normal respiratory effort and able to speak in complete sentences Cardio: Rate: regular rate Peripheral pulses: Peripheral pulses 2+ throughout GI: Palpation (GI): Soft to palpation Skin: Lesions: no lesions Rashes: no rashes Neuro: General: patient oriented x3 Extrem: Other: Left forearm splint clean, dry and intact. He is able to move fingers, NVI. Procedures Date of Service Date of Service: 02/18/22 Progress Note: A&P Assessment and plan (1) Ulnar fracture: Status: Acute Assessment and Plan: Continue ROM of fingers New sugartong splint applied this morning at bedside to allow for better motion of fingers and immobilization of the fracture site Patient to followup outpatient No additional orthopedic intervention needed at this time (2) Metacarpal bone fracture: Status: Acute Time Spent With Patient Time: Total time spent is greater than 50% in coordination of care (as documented) at patient's floor/unit and/or counseling patient: Quality Stroke Does the patient have a stroke diagnosis?: No VTE Prior VTE?: No VTE Risk Level:: Medical - moderate - high VTE Device Contraindication: N/A - Device Ordered VTE Drug Contraindication: N/A - Med Ordered
--- NOTE | 2022-02-18 14:11 | MHC.CM.PN ---
Addendum entered by Tessa Demspey 02/18/22 16:20: PT CONCERNED THAT HE MISPLACED HIS WALLET,CREDIT CARDS, ETC. THIS CM SPOKE WITH JOSEPH WHO HAS HIS WALLET, CM LET PT KNOW. Original Note: CM MET WITH PATIENT WHO NAMES HIS DAUGHTER DAVIDA HIS HCP. PT DOES NOT HAVE DAVIDA'S CONTACT INFO . CM REACHED OUT TO HIS FRIEND AND CONFIDANT JOSEPH WHO STATES SHE HAS A COPY OF HIS PROXY AND WILL BRING TO HOSPITAL THIS EVENING. PAOLO KAUR NOTIFIED.
[2022-02-18] MEDS: Atorvastatin Calcium 10 MG TABLET PO (21:55)
[2022-02-19] MEDS: 0.9 % Sodium Chloride Flush 3 ML SYRINGE IVFLUSH ×4 (00:38→21:03)
[2022-02-19 03:02] VITALS: BP 146/72; PULSE 60; RESP 18; TEMP 36.9; O2SAT 100
[2022-02-19] MEDS: Heparin Sodium,Porcine 5,000 UNIT/ML VIAL 5000 UNIT SUBCUT ×2 (04:31→15:49)
[2022-02-19] MEDS: Carbidopa/Levodopa 25/100 TABLET 1 TAB PO ×5 (05:48→21:03)
--- NOTE | 2022-02-19 06:31 | PC.NURSE ---
PT OOB TO RECLINER PER CHOICE UNTIL EARLY AM, THEN ASSIST OF 2 INTO BED. SPLINT AND CACHORRO WRAP C-D-I TO LEFT FOREARM, ABLE TO WIGGLE FINGERS, COLOR AND TEMP WNL.
[2022-02-19 07:20] VITALS: BP 137/62; PULSE 62; RESP 20; TEMP 36.8; O2SAT 99
[2022-02-19] MEDS: amantadine HCL 100 MG CAPSULE PO ×2 (09:07→21:02)
[2022-02-19 11:02] VITALS: BP 117/60; PULSE 63; RESP 20; TEMP 36.6; O2SAT 100
--- NOTE | 2022-02-19 13:10 | MHC.CM.PN ---
Per PA Patient is agreeable to dc to [facility]. PT eval has been sent to the facilities that have been referred.
--- NOTE | 2022-02-19 14:22 | HO.PM.IMPN ---
Subjective Subjective Date of Service: 02/19/22 Interval History: seen and examined this morning follow up for left arm fracture, encephalopathy awake and alert this morning able to answer questions appropriately reports left arm feels heavy with splint, but no significant pain at this time Review of Systems Review of Systems: Yes all other systems are reviewed and are negative Constitutional Constitutional: Denies chills and Denies fever(s) Cardiovascular Cardiovascular: Denies chest pain, Denies palpitations and Denies dyspnea Respiratory Respiratory: Denies cough and Denies dyspnea Gastrointestinal Gastrointestinal: Denies abdominal pain, Denies nausea and Denies vomiting Endocrine Endocrine: Denies palpitations Physical Exam Vital Signs: Vital Signs: Last Vital Signs Temp 97.8 F 02/19/22 11:02 Pulse 63 02/19/22 11:02 Resp 20 02/19/22 11:02 BP 117/60 02/19/22 11:02 Pulse Ox 100 02/19/22 11:02 O2 Del Method 02/19/22 11:02 BMI result Body Mass Index 25.0 Const: General: alert and awake Nutritional Appearance: average body habitus and thin Orientation/consciousness: patient oriented x3 Resp: Effort & Inspection: normal respiratory effort and able to speak in complete sentences Cardio: Rate: regular rate Heart sounds: S1 normal heart sound present and S2 normal heart sound present GI: Inspection: No distended Palpation (GI): Soft to palpation Neuro: General: patient oriented x3 Extrem: Other: left arm in cast from hand to aboe elbow. left hand warm, well perfused General: Yes no pedal edema Objective Data Active Medications Acetaminophen (Acetaminophen 325 Mg Tablet) 650 mg PO Q6H PRN PRN Reason: Pain, Mild (Pain Scale 1-3) Last Admin: 02/17/22 00:23 Dose: 650 mg Documented By: CAMERON Amantadine HCl (Amantadine Hcl 100 Mg Capsule) 100 mg PO BID [facility] Last Admin: 02/19/22 09:07 Dose: 100 mg Documented By: RODNEY Atorvastatin Calcium (Atorvastatin Calcium 10 Mg Tablet) 10 mg PO BEDTIME [facility] Last Admin: 02/18/22 21:55 Dose: 10 mg Documented By: ALEXANDER Carbidopa/Levodopa (Carbidopa/Levodopa Cr 25/100 Tablet.Er) 1 tab PO DAILY [facility] Last Admin: 02/19/22 09:07 Dose: Not Given Documented By: RODNEY Non-Admin Reason: per pt he only takes prn Carbidopa/Levodopa (Carbidopa/Levodopa 25/100 Tablet) 1 tab PO 5XD [facility] Last Admin: 02/19/22 09:07 Dose: 1 tab Documented By: RODNEY Entacapone (Entacapone 200 Mg Tablet) 200 mg PO 5XD [facility] Last Admin: 02/19/22 09:07 Dose: 200 mg Documented By: RODNEY Heparin Sodium (Porcine) (Heparin Sodium,Porcine 5,000 Unit/Ml Vial) 5,000 unit SUBCUT Q12H [facility] Last Admin: 02/19/22 04:31 Dose: 5,000 unit Documented By: MATHEW Ondansetron HCl (Ondansetron Hcl 4 Mg/2 Ml Vial) 4 mg IVPUSH Q8H PRN PRN Reason: Nausea and Vomiting Pharmacy Consult (Consult Rx Perform Med Rec) 1 each MISCELLANE ONCE PRN PRN Reason: Consult order Pharmacy Consult (Consult Rx Etoh Phenob Im/Po) 1 each MISCELLANE ONCE PRN; Protocol PRN Reason: Consult order Sodium Chloride (0.9 % Sodium Chloride Flush 3 Ml Syringe) 3 ml IVFLUSH QSHIFT [facility] Last Admin: 02/19/22 09:08 Dose: 3 ml Documented By: RODNEY Labs CBC & Chem 7: 02/18/22 06:57 02/18/22 06:57 Assessment and Plan (1) Encephalopathy: Status: Acute (2) Ulnar fracture: Status: Acute (3) Acute kidney failure: Status: Acute Plan 71yo M with Parkinson's Disease who presents after a fall in his backyard without LOC.? He sustained fractures of his left ulna and 4th and 5th metacarpals.? He has acute kidney injury with mild hyperkalemia and rhabdomyolysis.? He is confused and appears to be confabulating. Acute encephalopathy, unable to specify at this time. ?metabolic r/t ABDIRIZAK. 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 Outpatient follow-up with Ortho in 2 weeks for repeat x-rays and possible cast ABDIRIZAK Presumed prerenal plus tubular injury from TMP/SMX. resolved with IVF Traumatic rhabdomyolysis CPK trending down HyperK - Resolved s/p 1 dose of SPS Lactic acidosis - Resolved with IV fluid hydration. Not septic; likely dehydration. Parksinon's disease - continue carbidopa/levodopa, amantadine, and entacapone thrombocytopenia no baseline for comparison stable VTE prophylaxis: [facility] attending - dr. Kearns code status - patient states that he wishes to be DNR/DNI - states that he has DNR form at home and likely his friend serge has a copy as well dispo - seen by PT - rec [facility], pt agreeable In my clinical judgment, the patient requires continued inpatient hospitalization for the following reasons: encephalopathy, safe disposition Quality Stroke Does the patient have a stroke diagnosis?: No VTE Prior VTE?: No VTE Risk Level:: Medical - moderate - high VTE Device Contraindication: N/A - Device Ordered VTE Drug Contraindication: N/A - Med Ordered
[2022-02-19 15:46] VITALS: BP 158/83; PULSE 67; RESP 16; TEMP 36.8; O2SAT 97
[2022-02-19] MEDS: Carbidopa/Levodopa CR 25/100 TABLET.ER 1 TAB PO (17:51)
[2022-02-19 20:00] VITALS: BP 135/64; PULSE 71; RESP 18; TEMP 36.9; O2SAT 98
[2022-02-19] MEDS: Atorvastatin Calcium 10 MG TABLET PO (21:03)
[2022-02-20] VITALS (8 sets, daily range): BP systolic 131–175; BP diastolic 70–91; PULSE 61–68; RESP 16–20; TEMP 36.7–37.1; O2SAT 96–99
[2022-02-20] MEDS: Heparin Sodium,Porcine 5,000 UNIT/ML VIAL 5000 UNIT SUBCUT ×2 (04:09→15:33)
[2022-02-20] MEDS: Carbidopa/Levodopa 25/100 TABLET 1 TAB PO ×5 (06:02→21:37)
[2022-02-20] MEDS: amantadine HCL 100 MG CAPSULE PO ×2 (08:46→21:37)
[2022-02-20] MEDS: Carbidopa/Levodopa CR 25/100 TABLET.ER 1 TAB PO (08:46)
[2022-02-20] MEDS: 0.9 % Sodium Chloride Flush 3 ML SYRINGE IVFLUSH ×2 (08:47→15:33)
--- NOTE | 2022-02-20 12:23 | MHC.CM.PN ---
Patient has accepted a bed offer for [facility] @ [facility]. He will discharge tomorrow. Per PA patient is ready to discharge today. The patient refused to discharge until tomorrow. His friend María was contacted, as well as the patient's sister/HCP Surekha. They agree to discharge tomorrow. They will be available to assist patient with items needed for transfer to [facility]. They are not available today. Each stated that that they will appeal the discharge planned today. PA notified that [facility] will hold the bed for dc tomorrow. A new HCP was documented with Sister Surekha 1st and friend María 2nd. The patient reports missing his ID and crefit cards from his wallet. Electrician'S Helper notified. TW instructed to look in paper chart and EMR for documented belongings. There was no documentation in the chart or the EMR per RN. HCP is aware of the missing items. ENEIDA Mejía via BLS 02/21/22.
--- NOTE | 2022-02-20 13:01 | P.PNIM_ITS ---
Subjective Subjective Date of Service: 02/20/22 Interval History: seen and examined this morning follow up for left arm fracture, encephalopathy awake and alert, no longer confused left arm pain controlled no overnight events Review of Systems Review of Systems: Yes all other systems are reviewed and are negative Constitutional Constitutional: Denies chills and Denies fever(s) Cardiovascular Cardiovascular: Denies chest pain, Denies palpitations and Denies dyspnea Respiratory Respiratory: Denies cough and Denies dyspnea Gastrointestinal Gastrointestinal: Denies abdominal pain, Denies diarrhea, Denies nausea and Denies vomiting Endocrine Endocrine: Denies palpitations Physical Exam Vital Signs: Vital Signs: Last Vital Signs Temp 98.2 F 02/20/22 11:47 Pulse 65 02/20/22 11:47 Resp 20 02/20/22 11:47 BP 143/91 H 02/20/22 11:47 Pulse Ox 98 02/20/22 11:47 O2 Del Method 02/20/22 11:47 BMI result Body Mass Index 25.0 Const: Other: tearful General: alert and awake Nutritional Appearance: average body habitus and thin Orientation/consciousness: patient oriented x3 Resp: Effort & Inspection: normal respiratory effort and able to speak in complete sentences Cardio: Rate: regular rate Heart sounds: S1 normal heart sound present and S2 normal heart sound present GI: Inspection: No distended Palpation (GI): Soft to palpation Neuro: General: patient oriented x3 Extrem: Other: left arm in cast from hand to above elbow. left hand warm, well perfused General: Yes no pedal edema Psych: Affect: Blunted affect present Objective Data Active Medications Acetaminophen (Acetaminophen 325 Mg Tablet) 650 mg PO Q6H PRN PRN Reason: Pain, Mild (Pain Scale 1-3) Last Admin: 02/17/22 00:23 Dose: 650 mg Documented By: CAMERON Amantadine HCl (Amantadine Hcl 100 Mg Capsule) 100 mg PO BID [facility] Last Admin: 02/20/22 08:46 Dose: 100 mg Documented By: LUKAS Atorvastatin Calcium (Atorvastatin Calcium 10 Mg Tablet) 10 mg PO BEDTIME [facility] Last Admin: 02/19/22 21:03 Dose: 10 mg Documented By: MARCO Carbidopa/Levodopa (Carbidopa/Levodopa Cr 25/100 Tablet.Er) 1 tab PO DAILY [facility] Last Admin: 02/20/22 08:46 Dose: 1 tab Documented By: LUKAS Carbidopa/Levodopa (Carbidopa/Levodopa 25/100 Tablet) 1 tab PO 5XD [facility] Last Admin: 02/20/22 10:40 Dose: 1 tab Documented By: LUKAS Entacapone (Entacapone 200 Mg Tablet) 200 mg PO 5XD [facility] Last Admin: 02/20/22 10:40 Dose: 200 mg Documented By: LUKAS Heparin Sodium (Porcine) (Heparin Sodium,Porcine 5,000 Unit/Ml Vial) 5,000 unit SUBCUT Q12H [facility] Last Admin: 02/20/22 04:09 Dose: 5,000 unit Documented By: MARCO Ondansetron HCl (Ondansetron Hcl 4 Mg/2 Ml Vial) 4 mg IVPUSH Q8H PRN PRN Reason: Nausea and Vomiting Pharmacy Consult (Consult Rx Perform Med Rec) 1 each MISCELLANE ONCE PRN PRN Reason: Consult order Pharmacy Consult (Consult Rx Etoh Phenob Im/Po) 1 each MISCELLANE ONCE PRN; Protocol PRN Reason: Consult order Sodium Chloride (0.9 % Sodium Chloride Flush 3 Ml Syringe) 3 ml IVFLUSH QSHIFT [facility] Last Admin: 02/20/22 08:47 Dose: 3 ml Documented By: LUKAS Labs CBC & Chem 7: 02/18/22 06:57 02/18/22 06:57 Assessment and Plan (1) Encephalopathy: Status: Acute Plan 71yo M with Parkinson's Disease who presents after a fall in his backyard without LOC.? He sustained fractures of his left ulna and 4th and 5th metacarpals.? He has acute kidney injury with mild hyperkalemia and rhabdomyolysis.? He is confused and appears to be confabulating. Acute encephalopathy, ?metabolic r/t ABDIRIZAK. 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 Outpatient follow-up with Ortho in 2 weeks for repeat x-rays and possible cast ABDIRIZAK Presumed prerenal plus tubular injury from TMP/SMX. resolved with IVF Traumatic rhabdomyolysis CPK trending down HyperK - Resolved s/p 1 dose of SPS Lactic acidosis - Resolved with IV fluid hydration. Not septic; likely dehydration. Parksinon's disease - continue carbidopa/levodopa, amantadine, and entacapone thrombocytopenia no baseline for comparison stable VTE prophylaxis: [facility] attending - dr. Dumont code status - patient states that he wishes to be DNR/DNI - states that he has DNR form at home and likely his friend serge has a copy as well HCP - sister Surekha [phone] (cell) [phone] dispo - seen by PT - rec STR, pt agreeable In my clinical judgment, the patient requires continued inpatient hospitalization for the following reasons: encephalopathy, safe disposition Quality Stroke Does the patient have a stroke diagnosis?: No VTE Prior VTE?: No VTE Risk Level:: Medical - moderate - high VTE Device Contraindication: N/A - Device Ordered VTE Drug Contraindication: N/A - Med Ordered
--- NOTE | 2022-02-20 18:18 | PC.NURSE ---
B/P elevated to 174/85 this afternoon. NATASHA Godinez made aware. Will recheck in an hour. Patient is asymptomatic.
[2022-02-20] MEDS: Atorvastatin Calcium 10 MG TABLET PO (21:37)
[2022-02-21] MEDS: 0.9 % Sodium Chloride Flush 3 ML SYRINGE IVFLUSH ×2 (00:50→09:57)
[2022-02-21 04:00] VITALS: BP 142/74; PULSE 63; RESP 20; TEMP 37.1; O2SAT 96
[2022-02-21] MEDS: Heparin Sodium,Porcine 5,000 UNIT/ML VIAL 5000 UNIT SUBCUT (04:27)
[2022-02-21] MEDS: Carbidopa/Levodopa 25/100 TABLET 1 TAB PO ×2 (06:03→09:57)
[2022-02-21 07:41] VITALS: BP 146/79; PULSE 63; RESP 20; TEMP 36.7; O2SAT 98
[2022-02-21] MEDS: amantadine HCL 100 MG CAPSULE PO (09:57)
[2022-02-21] MEDS: Carbidopa/Levodopa CR 25/100 TABLET.ER 1 TAB PO (09:57)
[2022-02-21 11:01] VITALS: BP 136/73; PULSE 81; RESP 20; TEMP 36.8; O2SAT 97
--- NOTE | 2022-02-21 11:57 | P.DS_ITS ---
DS: Providers Provider Date of Service: 02/21/22 Date of admission: 02/15/22 15:34 Primary care physician: Sharmaine Jessica MD Consults: 02/15/22 15:18 Consult to Orthopedics Routine Consulting Provider: [facility] Reason for consultation: 4th + 5th MC fractures, ulna fracture 02/16/22 08:37 Consult to Neurology Routine Consulting Provider: [facility] [place] [facility] Reason for consultation: multifactorial enceph- Parkinsons, ?EtOH Attending physician on discharge: Rodney Morrison Discharging clinician: Shanna Moctezuma DS: Diagnosis Discharge Diagnosis (1) Encephalopathy: Status: Acute DS: Summary Hospital Course Hospital Course: HP as per admitting provider 71yo M with Parkinson's Disease who lives alone and fell in his backyard this morning.? He is wheelchair-bound and apparently lost his balance and fell on his left arm.? He complains of severe left arm pain.? He denies loss of consciousness. ? He called the police and was brought in by EMS.? The patient is quite confused and further history is not obtainable.? He told the ED PA that he and his Merari Cobian were tied up in the basement and that she was murdered and that's why he called the police.? The PA confirmed that his did in an accident several years ago.? He told me that she in 2016.? Per his friends, Steven and María, who check up on him periodically [every other day for the past 3 months], she of Shereen Gehrig's disease. I reviewed his records from [facility] [place] for his medical history.? He was recently seen by his PCP, Wen Carroll NP.? He was prescribed TMP/SMX for recurrent UTI. In the ED, he was noted to have renal insufficiency with BUN 54/3.11 compared to 16/1.1 on .? K 5.4, HCO3 18, AST 92, ALT 8, CPK 2240.? CT head and C-spine without acute fractures or bleeds.? CXR without rib fractures or PTX.? Plain films showed oblique fractures of the middle segment of the left 4th and 5th metacarpals, and a non-displaced fracture of the distal left ulna.? He was placed in an ulnar gutter splint.? He was given 30 g of Kayexelate and 1L of normal saline. I asked him about drinking alcohol, and he said he had friends over to drink 3 days ago.? He is unable to tell me how much he drank and it is unclear whether this is actually true.? His friends Steven and María have no idea about whether this is true . Acute encephalopathy, ?metabolic r/t ABDIRIZAK. improving, seems at baseline brain CT negative UA, CXR negative for infection? 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 No lifting more than a coffee cup.? Outpatient follow-up with Ortho in 2 weeks for repeat x-rays ABDIRIZAK Presumed prerenal plus tubular injury from TMP/SMX.? resolved with IVF stopped bactrim Traumatic rhabdomyolysis CPK trending down HyperK Resolved s/p 1 dose of SPS Lactic acidosis Resolved with IV fluid hydration.? Not septic; likely dehydration. Parksinon's disease continue carbidopa/levodopa, amantadine, and entacapone thrombocytopenia no baseline for comparison Time Spent with Patient Time attestation: Total time spent providing and/or coordinating discharge services: Discharge coordination time: Greater than 30 minutes Quality: Safe Use of Opioids Does Pt have an Active Cancer Diagnosis on the Problem List?: No Quality: Stroke Does the patient have a stroke diagnosis?: No Physical Exam Vital Signs: Vital Signs: Last Vital Signs Temp 98.3 F 02/21/22 11:01 Pulse 81 02/21/22 11:01 Resp 20 02/21/22 11:01 BP 136/73 02/21/22 11:01 Pulse Ox 97 02/21/22 11:01 O2 Del Method 02/21/22 11:01 BMI result Body Mass Index 25.0 Appearing in no acute distress head is normocephalic atraumatic eyes pupils are PERRLA sclera is anicteric mouth throat mucous membranes are intact and moist neck is supple no lymphadenopathy, no JVD noted lung sounds are clear to auscultation heart regular rate rhythm, clear S1, S2 positive bowel sounds, abdomen is soft, nontender neuro patient is alert x3, no focal deficits Left arm cast present Discharge Plan Discharge Anticipated Discharge Date/Time: 02/21/22 11:52 Patient Disposition: Xfer Inpatient Rehab Fac Discharge Diagnosis: Acute encephalopathy secondary to ABDIRIZAK Left ulna and 4th, 5th metacarpal fracture ABDIRIZAK Rhabdomyolysis Referrals: Sharmaine Jessica MD [Primary Care Provider] - 1 Week Kym Lee PA-C [Physician Sales Planner] - 2 Weeks (03/02/22 10:30 [facility] [place] Kym Lee PA-C) Discharge Medications: Continued carbidopa-levodopa 25-100 mg tablet extended release 1 tab PO QAM amantadine HCl 100 mg capsule 1 cap PO BID entacapone 200 mg tablet 1 tab PO 5XD simvastatin 20 mg tablet 1 tab PO BEDTIME carbidopa-levodopa 25-100 mg tablet 1 tab PO 5XD cyclobenzaprine 5 mg tablet 1 tab PO BEDTIME PRN (Reason: Spasms) oxycodone 10 mg tablet 2 tab PO Q8H PRN (Reason: pain) alendronate 70 mg/75 mL solution 70 mg PO QWEEK Discontinued sulfamethoxazole-trimethoprim 800-160 mg tablet 1 tab PO BID Discharge Orders: Discharge Order (Routine); Ordered 02/21/22 Ordered By: Shanna Moctezuma Diet: Advance to usual diet Activity on Discharge: As tolerated Stand Alone Forms: Patient Portal Discharge page Care Plan Goals: Follow-up with orthopedic surgery office as scheduled take all medications as prescribed Health Concerns: Acute encephalopathy secondary to ABDIRIZAK Left ulna and 4th, 5th metacarpal fracture ABDIRIZAK Rhabdomyolysis Plan of Treatment: * Keep splint clean, dry and intact * Elevate throughout the day * No heavy lifting * Perform fist/ finger exercises throughout the day * Do not bathe or shower--keep splint dry * 03/02/2210:30 [facility] [place] [facility] SurgeonsKym Lee PA-C Assessment: See discharge summary
--- NOTE | 2022-02-21 12:33 | MHC.CM.PN ---
DP: IMM DELIVERED PT MEDICALLY CLEARED FOR DISCHARGE TO [facility]. RN NOTIFIED HCP MEIR MADE AWARE AND ADDRESS OF CENTER PROVIDED. S TRANSPORT BOOKED FOR 2 PM WITH [facility].
[2022-02-21 13:26] LABS: COVID-19 Test Negative (Negative); IDNOW Serial# 16C4AD1C
--- NOTE | 2022-02-21 14:26 | PC.NURSE ---
All belongings with pt upon d/c. Paperwork given to EMS, gone over with pt. IV and tele removed. report given to EMS
[2022-02-23 09:36] LABS: Vitamin B1 849 nmol/L (8-30)
== END 2022-02-21 14:26 | DRG 56 ==
LOC: HO.ED 11:58 → HO.EDOVER 15:39 → HO.IMC 19:47
PROVIDERS: Physician Assistant Medical; Admitting Provider Family Medicine; Emergency Provider Emergency Medicine Emergency Medical Services; PCP Psychiatry & Neurology Neurology; Visit Provider Nurse Practitioner Acute Care
DX: G20 Parkinson's disease (principal); G93.41 Metabolic encephalopathy; N17.9 Acute kidney failure, unspecified; S52.602A Unspecified fracture of lower end of left ulna, initial encounter for closed fracture; E87.20 Acidosis, unspecified; Z66 Do not resuscitate; S62.395A Other fracture of fourth metacarpal bone, left hand, initial encounter for closed fracture; T79.6XXA Traumatic ischemia of muscle, initial encounter; S62.397A Other fracture of fifth metacarpal bone, left hand, initial encounter for closed fracture; W05.0XXA Fall from non-moving wheelchair, initial encounter; T36.8X5A Adverse effect of other systemic antibiotics, initial encounter; E87.5 Hyperkalemia; Z20.822 Contact with and (suspected) exposure to COVID-19; Z98.1 Arthrodesis status; Z87.891 Personal history of nicotine dependence; Z99.3 Dependence on wheelchair; Z87.440 Personal history of urinary (tract) infections; Z79.899 Other long term (current) drug therapy
CPT/HCPCS: 0241U; 36415; 70450; 71045; 72100; 72125; 73090; 73120; 73564; 76775; 80048; 80053; 80076; 80307; 81001; 82077; 82550; 82607; 82746; 82947; 83605; 83735; 84295; 84425; 85025; 85027; 85610; 85730; 87493; 87507; 87635; 89055; 92610; 97162; 99284; J2560; J3411

== ENCOUNTER 2022-03-02 07:53 | Outpatient (REF) | payer MEDICARE, SELFPAY ==
--- NOTE | ~2022-03-02 | XR_ITS ---
EXAMINATION: XR LEFT HAND XR LEFT FOREARM CLINICAL INFORMATION: Pain COMPARISON: Prior radiographs from 02/15/2022. TECHNIQUE: Left forearm, 2 views Left hand, 3 views FINDINGS: Left forearm: The bones have normal alignment at the elbow. The elbow joint spaces are normal. Again noted is the oblique fracture of the distal ulnar metadiaphysis resulting in 2-3 mm of cortical bone offset at the fracture site and mild ulnar angulation of the distal ulnar fragment. No callus formation. The radius is intact. Left hand: The carpal joint spaces are maintained. Again noted is an oblique fracture of the fourth metacarpal diaphysis with 0.2 cm ulnar displacement of the distal fragment. Also, there is an oblique fracture of the distal metadiaphysis of the fifth metacarpal with overriding of proximal and distal fragments and 0.3 cm radial displacement of the distal fragment. The metacarpophalangeal and interphalangeal joint spaces are maintained. XR/XR hand LT min 3V IMPRESSION: * No new fractures compared to 02/15/2022. * Again noted is a mildly displaced, oblique fracture of the distal ulnar metadiaphysis. * There are displaced fractures of the fourth and fifth metacarpals. No periosteal reaction.
--- NOTE | ~2022-03-02 | XR_ITS ---
EXAMINATION: XR LEFT HAND XR LEFT FOREARM CLINICAL INFORMATION: Pain COMPARISON: Prior radiographs from 02/15/2022. TECHNIQUE: Left forearm, 2 views Left hand, 3 views FINDINGS: Left forearm: The bones have normal alignment at the elbow. The elbow joint spaces are normal. Again noted is the oblique fracture of the distal ulnar metadiaphysis resulting in 2-3 mm of cortical bone offset at the fracture site and mild ulnar angulation of the distal ulnar fragment. No callus formation. The radius is intact. Left hand: The carpal joint spaces are maintained. Again noted is an oblique fracture of the fourth metacarpal diaphysis with 0.2 cm ulnar displacement of the distal fragment. Also, there is an oblique fracture of the distal metadiaphysis of the fifth metacarpal with overriding of proximal and distal fragments and 0.3 cm radial displacement of the distal fragment. The metacarpophalangeal and interphalangeal joint spaces are maintained. XR/XR forearm LT 2V IMPRESSION: * No new fractures compared to 02/15/2022. * Again noted is a mildly displaced, oblique fracture of the distal ulnar metadiaphysis. * There are displaced fractures of the fourth and fifth metacarpals. No periosteal reaction.
== END 2022-03-02 07:54 | disposition home or self-care (01) ==
LOC: HO.HOSX 07:53
PROVIDERS: Visit Provider Physician Assistant
DX: S52.202A Unspecified fracture of shaft of left ulna, initial encounter for closed fracture (principal)
CPT/HCPCS: 29085; 73090; 73130; 99212

== ENCOUNTER 2022-04-06 16:36 | Outpatient (REF) | payer MEDICARE, SELFPAY ==
--- NOTE | ~2022-04-06 | XR_ITS ---
EXAMINATION: 1. RADIOGRAPHS LEFT FOREARM 2. RADIOGRAPHS LEFT HAND CLINICAL INFORMATION: Pain COMPARISON: Radiographs of the left forearm and hand 03/02/2022 TECHNIQUE: 2 views of left forearm and 3 views of left hand were obtained. FINDINGS: Appreciable interval callus formation along the distal ulnar fracture. Fracture fragments are in near anatomical alignment. Fracture line is still visualized. There is no fracture of the left radius. Again noted is an oblique fracture through the fifth metacarpal with similar offset and foreshortening. There is been no significant interval callus formation along this fracture line. Nondisplaced oblique fracture through the fourth metacarpal demonstrates stable alignment with no significant interval callus formation. XR/XR forearm LT 2V IMPRESSION: 1. Interval callus formation along the distal ulnar fracture. Fracture fragments are in near anatomical alignment. 2. Stable alignment of fourth and fifth metacarpal fractures. There is been no appreciable periosteal reaction involving either of these fractures.
--- NOTE | ~2022-04-06 | XR_ITS ---
EXAMINATION: 1. RADIOGRAPHS LEFT FOREARM 2. RADIOGRAPHS LEFT HAND CLINICAL INFORMATION: Pain COMPARISON: Radiographs of the left forearm and hand 03/02/2022 TECHNIQUE: 2 views of left forearm and 3 views of left hand were obtained. FINDINGS: Appreciable interval callus formation along the distal ulnar fracture. Fracture fragments are in near anatomical alignment. Fracture line is still visualized. There is no fracture of the left radius. Again noted is an oblique fracture through the fifth metacarpal with similar offset and foreshortening. There is been no significant interval callus formation along this fracture line. Nondisplaced oblique fracture through the fourth metacarpal demonstrates stable alignment with no significant interval callus formation. XR/XR hand LT min 3V IMPRESSION: 1. Interval callus formation along the distal ulnar fracture. Fracture fragments are in near anatomical alignment. 2. Stable alignment of fourth and fifth metacarpal fractures. There is been no appreciable periosteal reaction involving either of these fractures.
== END 2022-04-06 16:37 | disposition home or self-care (01) ==
LOC: HO.HOSX 16:36
PROVIDERS: Visit Provider Physician Assistant
DX: S62.307D Unspecified fracture of fifth metacarpal bone, left hand, subsequent encounter for fracture with routine healing (principal); S62.305D Unspecified fracture of fourth metacarpal bone, left hand, subsequent encounter for fracture with routine healing; S52.202D Unspecified fracture of shaft of left ulna, subsequent encounter for closed fracture with routine healing; X58.XXXD Exposure to other specified factors, subsequent encounter
CPT/HCPCS: 73090; 73130; 99212

== ENCOUNTER 2022-05-04 10:06 | Outpatient (REF) | payer MEDICARE, SELFPAY ==
--- NOTE | ~2022-05-04 | XR_ITS ---
EXAMINATION: XR HAND, LEFT CLINICAL INFORMATION: Pain. COMPARISON: Left hand 04/06/2022 TECHNIQUE: PA, lateral, and oblique views of the left hand. FINDINGS: There is a displaced oblique fracture mid fifth metacarpal and a nondisplaced oblique fracture fourth mid metacarpal. There is no callus formation seen in either fractures. There is an old distal ulnar fracture with exuberant callus formation. The soft tissues are normal. XR/XR hand LT min 3V IMPRESSION: Displaced oblique fracture mid fifth metacarpal and nondisplaced oblique fracture fourth mid metacarpal are unchanged. There is exuberant callus formation seen in the distal ulnar fracture. It is unchanged as well.
== END 2022-05-04 10:07 | disposition home or self-care (01) ==
LOC: HO.HOSX 10:06
PROVIDERS: Visit Provider Physician Assistant
DX: S62.307D Unspecified fracture of fifth metacarpal bone, left hand, subsequent encounter for fracture with routine healing (principal); S62.305D Unspecified fracture of fourth metacarpal bone, left hand, subsequent encounter for fracture with routine healing; S52.202D Unspecified fracture of shaft of left ulna, subsequent encounter for closed fracture with routine healing; X58.XXXD Exposure to other specified factors, subsequent encounter
CPT/HCPCS: 73130; 99212

== ENCOUNTER → 2022-05-24 11:37 | Outpatient (BNVA) | payer MEDICARE, SELFPAY | PROVIDERS: PCP Nurse Practitioner Family; Visit Provider Psychiatry & Neurology Neurology | DX: G20 Parkinson's disease (principal) | CPT/HCPCS: 99212 ==

== ENCOUNTER 2022-06-15 12:29 | Outpatient (REF) | payer MEDICARE, SELFPAY ==
--- NOTE | ~2022-06-15 | XR_ITS ---
EXAMINATION: XR hand LT min 3V, XR forearm LT 2V CLINICAL INFORMATION: Reason for Exam M79.642 - Pain in left hand COMPARISON: 05/04/2022 TECHNIQUE: Two views of the left forearm and 3 views of the left hand XR/XR forearm LT 2V FINDINGS/IMPRESSION: * Redemonstration of obliquely oriented fracture of the fifth metacarpal with similar osseous bridging, not significantly changed from prior study. Nondisplaced fracture of the fourth metacarpal is a again seen. Mildly displaced fracture of the distal ulnar metadiaphysis is again noted.
--- NOTE | ~2022-06-15 | XR_ITS ---
EXAMINATION: XR hand LT min 3V, XR forearm LT 2V CLINICAL INFORMATION: Reason for Exam M79.642 - Pain in left hand COMPARISON: 05/04/2022 TECHNIQUE: Two views of the left forearm and 3 views of the left hand XR/XR hand LT min 3V FINDINGS/IMPRESSION: * Redemonstration of obliquely oriented fracture of the fifth metacarpal with similar osseous bridging, not significantly changed from prior study. Nondisplaced fracture of the fourth metacarpal is a again seen. Mildly displaced fracture of the distal ulnar metadiaphysis is again noted.
== END 2022-06-15 12:30 | disposition home or self-care (01) ==
LOC: HO.HOSX 12:29
PROVIDERS: Visit Provider Physician Assistant
DX: S62.307A Unspecified fracture of fifth metacarpal bone, left hand, initial encounter for closed fracture (principal); S62.305A Unspecified fracture of fourth metacarpal bone, left hand, initial encounter for closed fracture; S52.202A Unspecified fracture of shaft of left ulna, initial encounter for closed fracture
CPT/HCPCS: 73090; 73130; 99212